=== PATIENT | female | born 1985 | race Caucasian/White ===

== ENCOUNTER 2018-04-24 13:36 | Emergency (ER) | payer OTHER ==
--- OUTSIDE RECORDS SUMMARY | 2018-04-24 13:38 | XMS REPORT | Clinical Summary ---
:1985 Author Organization [facility] Address [address] [place] [address] Care Team Providers Name Role Phone Sebastián Carter MD Primary Care Provider Allergies Active Allergy Reactions Severity Noted Date Comments Penicillins Rash Low 02/05/2018 Medications Medication Sig Dispensed Refills Start Date End Date Status 25/iron Take by mouth. 0 Active fum/folic/dha (-1 ORAL) ferrous sulfate 325 (65 Take 325 mg by 0 Active FE) MG tablet mouth daily with breakfast. melatonin 3 mg tablet Take by mouth. 0 Active Active Problems Not on file Encounters Date Type Specialty Care Team Description 02/12/2018 Telephone Gynecologic Oncology Dara An RN 02/11/2018 Abstract Gynecologic Oncology Josef Hernandez MD 02/05/2018 Lab Lab Josef Hernandez MD 02/05/2018 Office Visit Gynecologic Oncology Josef Hernandez HGSIL (high grade squamous intraepithelial lesion) on Pap smear of cervix (Primary Dx); MD Trista HPV in female; 16 weeks gestation of after 04/23/2017 Family History Medical History Relation Name Comments Prostate cancer Father Breast cancer Maternal Grandmother Relation Name Status Comments Father Alive Maternal Grandmother Social History Tobacco Use Types Packs/Day Years Used Date Smoker, Current Status Unknown Cigarettes 0.5 12 Smokeless Tobacco: Never Used Alcohol Use Drinks/Week oz/Week Comments No Currently Comments Yes Sex Assigned at Date Recorded Not on file Job Start Date Occupation Industry Not on file Not on file Not on file Travel History Travel Start Travel End No recent travel history available. Last Filed Vital Signs Vital Sign Reading Time Taken Blood Pressure 110/55 02/05/2018 2:18 PM CDT Pulse 82 02/05/2018 2:18 PM CDT Temperature - - Respiratory Rate - - Oxygen Saturation - - Inhaled Oxygen Concentration - - Weight 69.8 kg (153 lb 12.8 oz) 02/05/2018 2:18 PM CDT Height 157.5 cm (5' 2") 02/05/2018 2:18 PM CDT Body Mass Index 28.13 02/05/2018 2:18 PM CDT Plan of Treatment Health Maintenance Due Date Last Done Comments CERVICAL CANCER SCREENING 2005 INFLUENZA VACCINE 12/25/2017 HEPATITIS B VACCINES Aged Out No longer eligible based on patient's age to complete this topic IPV VACCINES Aged Out No longer eligible based on patient's age to complete this topic MENINGOCOCCAL VACCINE Aged Out No longer eligible based on patient's age to complete this topic Procedures Procedure Name Priority Date/Time Associated Diagnosis Comments SURGICAL PATHOLOGY Routine 02/05/2018 4:22 PM Results for this REQUEST CDT procedure are in the results section. BIOPSY CERVIX Routine 02/05/2018 2:31 PM CDT AR BIOPSY SOFT Routine 02/05/2018 Results for this TISSUE NECK/CHEST procedure are in the results section. after 04/23/2017 Results Surgical pathology request (02/05/2018 4:22 PM CDT) [facility] DEPARTMENT OF PATHOLOGY AND GENOMIC MEDICINE Surgical pathology report See link below for PDF [facility] DEPARTMENT OF Lab Report PATHOLOGY AND GENOMIC MEDICINE Result status This is Final Report [facility] DEPARTMENT OF for [id number] PATHOLOGY AND GENOMIC MEDICINE Performing Organization Address City/State/Zipcode Phone Number [facility] DEPARTMENT OF PATHOLOGY [address] [place] [address] AND GENOMIC MEDICINE Soft tissue biopsy (02/05/2018) Narrative Performed At [facility]: [id number] AGE:32 Y SEX: FDOB: 1985 DOCTOR: JOSEF HERNANDEZ DATE OF SERVICE: 02/05/2018 [facility] Pathology Consultation Report FINAL REPORT CASE: [id number] ANATOMIC PATHOLOGY DIAGNOSIS: A. Cervix, 1:00, biopsy: Benign endocervical tissue with chronic inflammation and focal squamous metaplasia B. Cervix, 6:00, biopsy: Transformation zone mucosa with focal squamous metaplasia and reactive changes APEO 02/07/2018 PATHOLOGIST: Amara Kilgore M.D. I have reviewed this material and confirm the report. Released by electronic signature on: 02/07/2018 13:52 MATERIAL: A. Cervical biopsy at 1 o'clock B. Cervical biopsy at 6 o'clock HISTORY: 32 year-old female. HSIL, HPV in female, 16 week gestation at . GROSS: A. Received in formalin labeled "cervical biopsy at 1 o'clock", is a 0.6 x 0.4 x 0.3 cm aggregate of davidson-pink to red soft tissue with admixed mucous and clotted blood. The specimen is filtered and submitted in toto in cassette A. B. Received in formalin labeled "cervical biopsy at 6 o'clock" , is a 0.4 x 0.4 x 0.3 cm davidson-pink to red soft tissue which is submitted in toto in cassette B. Gross Dictator ID Gross Deputy Head ID [id number] 02/07/2018 1:52 PM MICROSCOPIC: A. Sections consist of benign endocervical tissue with scattered chronic inflammation with focal squamous metaplasia. P16 immunohistochemical stain is negative in the area of interest. B. Sections consist of transformation zone mucosa with focal squamous metaplasia. No definitive dysplasia is seen. P16 immunohistochemical stain is negative in the area of interest. This immunohistochemical test was developed and its preference characteristics determined by [facility], Immunohistochemistry section. It may not have been cleared or approved by the U.S. Food and Drug Administration. The FDA has determined that such clearance or approval is not necessary. This test is used for clinical purposes. It should not be regarded as investigational or for research. This laboratory is certified under the Clinical Laboratory Improvement Amendments of 1988 (CLIA) as qualified to perform high complexity clinical laboratory testing. Microscopic Dictator ID Microscopic Deputy Head ID 02/07/2018 1:52 PM [facility] [address] [place] [address] after 04/23/2017 Insurance Payer Benefit Plan / Group Subscriber ID Type Phone Address [employer] xxxxxxxxx HMO (Home) [address] [place] [phone] Advance Directives Patient has advance care planning documents on file. For more information, please contact:[place] [address] [place] [address]
[2018-04-24 14:23] LABS: Absolute Lymphocytes (CBC) 1.7 K/uL (0.7-4.9); Absolute Monocytes 0.5 K/uL (0.1-1.3); Basophils % 0.3 % (0-1.3); Eosinophils % 0.4 % (0-4.4); Hematocrit 32.4 % (36.0-45.0); Lymphocytes % 12.5 % (15.3-44.8); MCH 33.4 pg (27.0-35.0); MCV 95.5 fL (80-100); MPV 9.4 fL (7.6-11.3); Monocytes % 3.8 % (3.3-12.3); RBC Red Blood Cell Count 3.39 M/uL (3.86-4.86)
[2018-04-24 14:42] LABS: ALT/SGPT 19 U/L (12-78); AST/SGOT 14 U/L (15-37); Albumin 2.5 g/dL (3.4-5.0); Alkaline Phosphatase 81 U/L (45-117); BUN Blood Urea Nitrogen 7 mg/dL (7-18); Bicarbonate 25 mmol/L (21-32); Bilirubin Direct 0.1 mg/dL (0-0.2); Bilirubin Total 0.3 mg/dL (0.2-1.0); Glucose Level 108 mg/dL (74-106); Lipase 73 U/L (73-393); Potassium 3.4 mmol/L (3.5-5.1); Protein, Total 5.9 g/dL (6.4-8.2); Sodium Level 140 mmol/L (136-145)
[2018-04-24] MEDS ORDERED: ONDANSETRON 4 MG/2 ML VIAL ONE (15:16)
[2018-04-24] MEDS ORDERED: FAMOTIDINE 20 MG/2 ML VIAL IV ONE (15:16)
--- NOTE | 2018-04-24 15:48 | RAD REPORT ---
EXAM DESCRIPTION: US - Abdomen Exam Limited - 04/24/2018 3:27 pm CLINICAL HISTORY: Abdominal pain. COMPARISON: None. FINDINGS: Two gallstones are seen. Gallbladder wall measures 3.5 millimeters. The biliary tree is normal caliber IMPRESSION: Cholelithiasis. Mildly thickened gallbladder wall may indicate cholecystitis.
[2018-04-24 15:55] LABS: Urine Blood TRACE (NEG); Urine Glucose NEGATIVE (NEG); Urine Protein NEGATIVE (NEG)
[2018-04-24] MEDS ORDERED: POTASSIUM 25 MEQ EFFERV TAB ONE (16:14)
[2018-04-24 16:17] LABS: Urine Bacteria <20 /HPF (<20); Urine Culture Reflex Order NOT NEEDED; Urine RBC <5 /HPF (NONE SEEN)
--- NOTE | 2018-04-24 16:22 | ER ---
Nurse's Notes [facility] Name: Bridget Haas Age: 32 yrs Sex: Female : 1985 Arrival Date: 04/24/2018 Time: 13:39 Bed 17 Private MD: Sebastián Carter E Diagnosis: Cholelithiasis; related conditions, unspecified, unspecified trimester Presentation: 04/24 13:49 Presenting complaint: Patient states: Epigastric pain that radiates around to back with aj nausea. Patient is 33 weeks , cleared by L\T\D LIVESTOCK LABORER. Transition of care: patient was not received from another setting of care. Onset of symptoms was April 24, 2018. Risk Assessment: Do you want to hurt yourself or someone else? Patient reports no desire to harm self or others. Initial Sepsis Screen: Does the patient meet any 2 criteria? No. Patient's initial sepsis screen is negative. Does the patient have a suspected source of infection? No. Patient's initial sepsis screen is negative. Care prior to arrival: None. 13:49 Method Of Arrival: Ambulatory aj 13:49 Acuity: RONAK 3 aj Triage Assessment: 13:51 General: Appears in no apparent distress. comfortable, Behavior is calm, cooperative, aj appropriate for age. Pain: Complains of pain in epigastric area. Neuro: Level of Consciousness is awake, alert, obeys commands, Oriented to person, place, time, situation, Appropriate for age. Respiratory: Airway is patent Trachea midline Respiratory effort is even, unlabored, Respiratory pattern is regular, symmetrical. GI: Reports epigastric pain, nausea. Derm: Skin is intact, is healthy with good turgor, Skin is pink, warm \T\ dry. normal. Musculoskeletal: Circulation, motion, and sensation intact. RAC SPECIALIST: 13:51 LMP 09/02/2017 aj Historical: - Allergies: 13:51 PENICILLINS; aj - Home Meds: 13:51 Zoloft Oral [Active]; aj - PMHx: 13:51 ADD/ADHD; Anxiety; Depression; headaches/migraines; Kidney stones; aj - PSHx: 13:51 Tonsillectomy; D \T\ C; aj - Immunization history:: Adult Immunizations up to date. - Social history:: Smoking status: Patient uses tobacco products, smokes one pack cigarettes per day. - Ebola Screening: : Patient negative for fever greater than or equal to 101.5 degrees Fahrenheit, and additional compatible Ebola Virus Disease symptoms Patient denies exposure to infectious person Patient denies travel to an Ebola-affected area in the 21 days before illness onset No symptoms or risks identified at this time. Screenin:52 Abuse screen: Denies threats or abuse. Denies injuries from another. Nutritional sv screening: No deficits noted. Tuberculosis screening: No symptoms or risk factors identified. Fall Risk None identified. Assessment: 14:10 General: Appears in no apparent distress. uncomfortable, Behavior is calm, cooperative, sv appropriate for age. Pain: Complains of pain in epigastric area Pain currently is 5 out of 10 on a pain scale. Quality of pain is described as burning. Neuro: Level of Consciousness is awake, alert, obeys commands, Oriented to person, place, time, situation, Moves all extremities. Full function Gait is steady. Respiratory: Respiratory effort is even, unlabored, Respiratory pattern is regular, symmetrical. GI: Abdomen is round Pt is . Reports epigastric pain. Derm: Skin is pink, warm \T\ dry. 15:50 Reassessment: Patient appears in no apparent distress at this time. No changes from sv previously documented assessment. Patient and/or family updated on plan of care and expected duration. Pain level reassessed. Patient is alert, oriented x 3, equal unlabored respirations, skin warm/dry/pink. Vital Signs: 13:51 BP 111 / 69; Pulse 90; Resp 20; Temp 98.0; Pulse Ox 99% on R/A; Weight 73.48 kg; Height aj 5 ft. 1 in. (154.94 cm); 15:51 BP 105 / 69; Pulse 64; Resp 18; Temp 98.5; Pulse Ox 98% on R/A; gm 13:51 Body Mass Index 30.61 (73.48 kg, 154.94 cm) aj Vitals: 15:18 Heart Tones 132. sv ED Course: 13:39 Patient arrived in ED. mr 13:40 Sebastián Carter MD is Private Physician. mr 13:50 Triage completed. aj 13:51 Arm band placed on left wrist. Patient placed in an exam room. aj 14:02 Glo Bai RN is Primary Nurse. sv 14:10 Patient has correct armband on for positive identification. Bed in low position. Call sv light in reach. Adult w/ patient. Door closed. Head of bed elevated. 14:10 Initial lab(s) drawn, by me, sent to lab. Inserted saline lock: 20 gauge in right sv antecubital area, using aseptic technique. Blood collected. Flushed right antecubital with 5 ml normal saline. 14:13 Michael Collins PA is PHCP. cp 14:13 Clarence Moody MD is Attending Physician. cp 15:18 Patient taken to ultrasound. via wheelchair. sv 15:28 US Abdomen Limited In Process Unspecified. EDMS 15:29 Ultrasound completed. Patient tolerated well. hr 16:27 IV discontinued, intact, bleeding controlled, No redness/swelling at site. Pressure gm dressing applied. 16:37 No provider procedures requiring assistance completed. IV discontinued, intact, sv bleeding controlled, No redness/swelling at site. Pressure dressing applied. Administered Medications: 15:15 Drug: Zofran 4 mg Route: IVP; Site: right antecubital; sv 16:38 Follow up: Response: No adverse reaction sv 15:17 Drug: Pepcid 20 mg Route: IVP; Site: right antecubital; sv 16:39 Follow up: Response: No adverse reaction sv 16:34 Drug: Potassium Effervescent Tablet 25 mEq Route: PO; sv 16:38 Follow up: Response: No adverse reaction sv Outcome: 16:18 Discharge ordered by MD. cp 16:37 Discharged to home ambulatory, with family. sv 16:37 Condition: stable 16:37 Discharge instructions given to patient, Instructed on discharge instructions, follow up and referral plans. medication usage, Demonstrated understanding of instructions, follow-up care, medications, Prescriptions given X 2. 16:39 Patient left the ED. sv Signatures: Dispatcher [employer] EDMS Glo Bai RN RN sv Myers, Amanda, RN RN aj Rivera, Sarah mr Marita Lazo hr Michael Collins PA PA cp Moya, Gabriella gm
--- NOTE | 2018-04-24 16:22 | EDPHYS ---
Physician Documentation [facility] Name: Bridget Haas Age: 32 yrs Sex: Female : 1985 Arrival Date: 04/24/2018 Time: 13:39 Bed 17 Private MD: Sebastián Carter E ED Physician Clarence Moody HPI: 04/24 14:35 This 32 yrs old Female presents to ER via Ambulatory with complaints of Upper cp abd pain, Back Pain. 14:35 The symptoms radiate to right back. cp 14:35 The patient presents with abdominal pain in the epigastric area, in the right upper cp quadrant. 14:35 Onset: The symptoms/episode began/occurred today. Associated signs and symptoms: cp Pertinent positives: nausea, Pertinent negatives: chest pain, constipation, diarrhea, dysuria, vaginal discharge, active vomiting, fever. The symptoms are described as constant. Severity of pain: in the emergency department the pain is unchanged despite home interventions. SUPERVISOR RECORD PRESS: 13:51 LMP 09/02/2017 aj Historical: - Allergies: 13:51 PENICILLINS; aj - Home Meds: 13:51 Zoloft Oral [Active]; aj - PMHx: 13:51 ADD/ADHD; Anxiety; Depression; headaches/migraines; Kidney stones; aj - PSHx: 13:51 Tonsillectomy; D \T\ C; aj - Immunization history:: Adult Immunizations up to date. - Social history:: Smoking status: Patient uses tobacco products, smokes one pack cigarettes per day. - Ebola Screening: : Patient negative for fever greater than or equal to 101.5 degrees Fahrenheit, and additional compatible Ebola Virus Disease symptoms Patient denies exposure to infectious person Patient denies travel to an Ebola-affected area in the 21 days before illness onset No symptoms or risks identified at this time. ROS: 14:40 Constitutional: Negative for body aches, chills, fever, poor PO intake. cp 14:40 Eyes: Negative for injury, pain, redness, and discharge. cp 14:40 ENT: Negative for drainage from ear(s), ear pain, sore throat, difficulty swallowing, difficulty handling secretions. 14:40 Cardiovascular: Negative for chest pain, edema, palpitations. 14:40 Respiratory: Negative for cough, shortness of breath, wheezing. 14:40 Abdomen/GI: Positive for abdominal pain, nausea, Negative for vomiting, diarrhea, constipation, anorexia, black/tarry stool, rectal bleeding. 14:40 Back: Positive for radiated pain, Negative for injury or acute deformity. 14:40 : Negative for urinary symptoms. 14:40 Skin: Negative for cellulitis, rash. 14:40 Neuro: Negative for altered mental status, headache, weakness. 14:40 All other systems are negative. Exam: 14:48 Constitutional: The patient appears in no acute distress, alert, awake, non-toxic, well cp developed, well nourished. 14:48 Head/Face: Normocephalic, atraumatic. cp 14:48 Eyes: Periorbital structures: appear normal, Conjunctiva: normal, no exudate, no injection, Sclera: no appreciated abnormality, Lids and lashes: appear normal, bilaterally. 14:48 ENT: External ear(s): are unremarkable, Nose: is normal, Mouth: is normal, Posterior pharynx: is normal, airway is patent, no erythema, no exudate. 14:48 Chest/axilla: Normal chest wall appearance and motion. Nontender with no deformity. cp No lesions are appreciated. 14:48 Cardiovascular: Regular rate and rhythm with a normal S1 and S2. No gallops, murmurs, or rubs. Normal PMI, no JVD. No pulse deficits. Respiratory: Lungs have equal breath sounds bilaterally, clear to auscultation and percussion. No rales, rhonchi or wheezes noted. No increased work of breathing, no retractions or nasal flaring. 14:48 Abdomen/GI: Inspection: gravid appearance, is noted, Bowel sounds: active, all quadrants, Palpation: soft, in all quadrants, moderate abdominal tenderness, in the epigastric area and right upper quadrant, rebound tenderness, is not appreciated, involuntary guarding, is not appreciated. 14:48 Back: pain, that is mild, of the right mid back, ROM is normal. 14:48 Skin: cellulitis, is not appreciated, no rash present. 14:48 Neuro: Orientation: to person, place \T\ time. Mentation: is normal, Cerebellar function: cp is grossly normal, Motor: is normal, Sensation: is normal. Vital Signs: 13:51 BP 111 / 69; Pulse 90; Resp 20; Temp 98.0; Pulse Ox 99% on R/A; Weight 73.48 kg; Height aj 5 ft. 1 in. (154.94 cm); 15:51 BP 105 / 69; Pulse 64; Resp 18; Temp 98.5; Pulse Ox 98% on R/A; gm 13:51 Body Mass Index 30.61 (73.48 kg, 154.94 cm) aj MDM: 14:14 Patient medically screened. cp 15:00 Differential diagnosis: bowel obstruction, cholecystitis, Cholelithiasis, gastritis, cp pancreatitis, Ureterolithiasis, urinary tract infection. 16:16 Data reviewed: vital signs, nurses notes, lab test result(s), radiologic studies, cp ultrasound, and as a result, I will discharge patient. Counseling: I had a detailed discussion with the patient and/or guardian regarding: the historical points, exam findings, and any diagnostic results supporting the discharge/admit diagnosis, lab results, radiology results, to return to the emergency department if symptoms worsen or persist or if there are any questions or concerns that arise at home. Response to treatment: the patient's symptoms have markedly improved after treatment. 04/24 14:05 Order name: Basic Metabolic Panel; Complete Time: 14:46 sv 04/24 15:53 Interpretation: Normal except: K 3.4; GLUC 108; CRE 0.50. 04/24 14:05 Order name: CBC with Diff; Complete Time: 14:46 sv 04/24 15:54 Interpretation: Normal except: WBC 13.3; RBC 3.39; HGB 11.3; HCT 32.4; MCV 95.5; MCH cp 33.4; PLT 148; DAVID% 83.0; LYM% 12.5; NEUT A 11.0. 04/24 14:05 Order name: Creatinine for Radiology; Complete Time: 14:46 sv 04/24 15:56 Interpretation: Reviewed. 04/24 14:05 Order name: Hepatic Function; Complete Time: 14:46 sv 04/24 15:54 Interpretation: Normal except: AST 14; TP 5.9; ALB 2.5; A/G 0.7. 04/24 14:05 Order name: Lipase; Complete Time: 14:46 sv 04/24 15:06 Order name: Urine Microscopic Only 04/24 14:05 Order name: IV Saline Lock; Complete Time: 14:47 sv 04/24 14:05 Order name: Labs collected and sent; Complete Time: 14:47 sv 04/24 14:56 Order name: US Abdomen Limited; Complete Time: 15:53 cp 04/24 16:15 Interpretation: Report reviewed. 04/24 15:15 Order name: Urine Dipstick--Ancillary (enter results); Complete Time: 16:08 eb 04/24 15:15 Order name: Urine --Ancillary (enter results); Complete Time: 16:08 eb 04/24 14:14 Order name: Urine Dipstick-Ancillary (obtain specimen); Complete Time: 15:06 cp 04/24 14:14 Order name: Urine Test (obtain specimen); Complete Time: 15:06 cp 04/24 14:56 Order name: FHT's; Complete Time: 15:17 cp Administered Medications: 15:15 Drug: Zofran 4 mg Route: IVP; Site: right antecubital; sv 16:38 Follow up: Response: No adverse reaction sv 15:17 Drug: Pepcid 20 mg Route: IVP; Site: right antecubital; sv 16:39 Follow up: Response: No adverse reaction sv 16:34 Drug: Potassium Effervescent Tablet 25 mEq Route: PO; sv 16:38 Follow up: Response: No adverse reaction sv Disposition: 18:57 Co-signature as Attending Physician, Clarence Moody MD I agree with the assessment and kdr plan of care. Disposition: 04/24/18 16:18 Discharged to Home. Impression: Cholelithiasis, related conditions, unspecified, unspecified trimester. - Condition is Stable. - Discharge Instructions: Abdominal Pain During , Biliary Colic, Adult, Cholelithiasis. - Prescriptions for promethazine 25 mg Oral Tablet - take 1 tablet by ORAL route every 6 hours As needed; 20 tablet. Pepcid 20 mg Oral Tablet - take 1 tablet by ORAL route every 12 hours for 10 days; 20 tablet. - Medication Reconciliation Form, Thank You Letter, Antibiotic Education, Prescription Opioid Use form. - Follow up: Private Physician; When: primary SUPERVISOR RECORD PRESS next 1-2 days; Reason: Recheck today's complaints. - Problem is new. - Symptoms have improved. Signatures: Dispatcher [facility] Glo Valdez RN RN sv Myers, Amanda, RN RN aj Rittger, Kevin, MD MD kdr Page, Michael, PA PA cp Corrections: (The following items were deleted from the chart) 16:39 16:18 04/24/2018 16:18 Discharged to Home. Impression: Cholelithiasis; sv related conditions, unspecified, unspecified trimester. Condition is Stable. Forms are Medication Reconciliation Form, Thank You Letter, Antibiotic Education, Prescription Opioid Use. Follow up: Private Physician; When: primary SUPERVISOR RECORD PRESS next 1-2 days; Reason: Recheck today's complaints. Problem is new. Symptoms have improved. cp 04/25 16:23 04/24 14:35 The patient presents with abdominal pain in the right upper quadrant, cp cp
[2018-04-24 17:15] VITALS: BP 105/69; TEMP 98.5; O2SAT 98
== END 2018-04-24 16:39 | disposition home or self-care (01) ==
LOC: ER 13:36
DX: O99.611 Diseases of the digestive system complicating pregnancy, first trimester (principal); O99.331 Smoking (tobacco) complicating pregnancy, first trimester; O99.341 Other mental disorders complicating pregnancy, first trimester; Z88.0 Allergy status to penicillin; F17.210 Nicotine dependence, cigarettes, uncomplicated
CPT/HCPCS: 36415; 76705; 80048; 80076; 81003; 81015; 81025; 83690; 85025; 96374; 96375; 99284; J2405

== ENCOUNTER 2018-05-01 03:21 | Emergency (ER) | payer OTHER ==
--- OUTSIDE RECORDS SUMMARY | 2018-05-01 03:23 | XMS REPORT | Clinical Summary ---
:1985 Author Organization [facility] Address [address] [place] [address] Care Team Providers Name Role Phone Sebastián [...] in female; 16 weeks gestation of after 04/30/2017 Family History Medical History Relation Name Comments [...] BIOPSY CERVIX Routine 02/05/2018 2:31 PM CDT LA BIOPSY SOFT Routine 02/05/2018 Results for this TISSUE NECK/CHEST procedure are in the results section. after 04/30/2017 Results Surgical pathology request (02/05/2018 4:22 PM CDT) [facility] DEPARTMENT OF PATHOLOGY AND GENOMIC MEDICINE Surgical pathology report See link below for PDF [facility] DEPARTMENT OF Lab Report PATHOLOGY AND GENOMIC MEDICINE Result status This is Final Report [facility] DEPARTMENT OF for [id number] PATHOLOGY AND GENOMIC MEDICINE Performing Organization Address City/State/Zipcode Phone Number [facility] DEPARTMENT OF PATHOLOGY [address] [place] [address] AND GENOMIC MEDICINE Soft tissue biopsy (02/05/2018) Narrative Performed At [facility]: [id number] AGE:32 Y SEX: FDOB: 1985 DOCTOR: JOSEF HERNANDEZ DATE OF SERVICE: 02/05/2018 [facility] Pathology Consultation Report FINAL REPORT CASE: SUSTAINABILITY [id number] ANATOMIC PATHOLOGY DIAGNOSIS: A. Cervix, 1:00, biopsy: [...] in cassette B. Gross Dictator ID Gross Lamp Stack Developer ID ekj 02/07/2018 1:52 PM MICROSCOPIC: A. [...] developed and its preference characteristics determined by [facility]ology [facility], Immunohistochemistry section. It may not [...] clinical laboratory testing. Microscopic Dictator ID Microscopic Lamp Stack Developer ID 02/07/2018 1:[address] [facility] [id number] [place] [address] after 04/30/2017 Insurance Payer Benefit Plan / Group Subscriber ID Type Phone Address Style [employer]/[facility] xxxxxxxxx HMO (Home) [address] [place] [phone] Advance Directives Patient has advance care planning documents on file. For more information, please contact:[place] [address] [place] [address]
[2018-05-01] MEDS ORDERED: FENTANYL CITR 100 MCG/2 ML ONE (04:13)
[2018-05-01] MEDS ORDERED: NA CHLORIDE 0.9% 1,000 ML ONE ×2 (04:13→06:17)
[2018-05-01] MEDS ORDERED: ONDANSETRON 4 MG/2 ML VIAL ONE (04:13)
[2018-05-01 04:21] LABS: Absolute Lymphocytes (CBC) 1.4 K/uL (0.7-4.9); Absolute Monocytes 0.5 K/uL (0.1-1.3); Basophils % 0.3 % (0-1.3); Eosinophils % 0.2 % (0-4.4); Hematocrit 36.6 % (36.0-45.0); Lymphocytes % 12.6 % (15.3-44.8); MCH 33.3 pg (27.0-35.0); MCV 96.3 fL (80-100); MPV 10.2 fL (7.6-11.3); Monocytes % 4.9 % (3.3-12.3)
[2018-05-01 04:49] LABS: ALT/SGPT 41 U/L (12-78); AST/SGOT 22 U/L (15-37); Albumin 2.9 g/dL (3.4-5.0); Alkaline Phosphatase 103 U/L (45-117); BUN Blood Urea Nitrogen 8 mg/dL (7-18); Bicarbonate 24 mmol/L (21-32); Bilirubin Direct 0.2 mg/dL (0-0.2); Bilirubin Total 0.4 mg/dL (0.2-1.0); Glucose Level 102 mg/dL (74-106); Lipase 74 U/L (73-393); Potassium 3.9 mmol/L (3.5-5.1); Protein, Total 6.8 g/dL (6.4-8.2); Sodium Level 138 mmol/L (136-145)
[2018-05-01 06:07] LABS: Urine Amorphous Sediment 2+ /HPF (NONE SEEN); Urine Bacteria <20 /HPF (<20); Urine Culture Reflex Order NOT NEEDED; Urine RBC <5 /HPF (NONE SEEN)
[2018-05-01] MEDS ORDERED: MORPHINE 4 MG/ML SYR ONE ×2 (06:16→10:15)
[2018-05-01 06:17] LABS: Urine Blood TRACE (NEG); Urine Glucose NEGATIVE (NEG); Urine Protein NEGATIVE (NEG); Urine Specific Gravity 1.025 (1.005-1.030); Urine pH 7.5 (5.0-7.0)
--- NOTE | 2018-05-01 06:47 | ER ---
Nurse's Notes [facility] Name: Bridget Haas Age: 33 yrs Sex: Female : 1985 Arrival Date: 05/01/2018 Time: 03:26 Bed 15 Private MD: Sebastián Carter E Diagnosis: Acute cholecystitis Presentation: 05/01 03:42 Presenting complaint: Patient states: she is 34 weeks and was diagnosed with aa1 gallstones last week. Reports she was told they wanted to wait to do surgery bc of the but the pain is getting worse and now she has been vomiting for the past 3 hours. Transition of care: patient was not received from another setting of care. Onset of symptoms was April 24, 2018. Risk Assessment: Do you want to hurt yourself or someone else? Patient reports no desire to harm self or others. Initial Sepsis Screen: Does the patient meet any 2 criteria? No. Patient's initial sepsis screen is negative. Does the patient have a suspected source of infection? No. Patient's initial sepsis screen is negative. Care prior to arrival: None. 03:42 Method Of Arrival: Ambulatory aa1 03:42 Acuity: RONAK 3 aa1 Historical: - Allergies: 10:57 PENICILLINS; ch - Home Meds: 03:45 Phenergan Oral [Active]; Famotidine Oral [Active]; Ferralet 90 Dual-Iron Delivery oral aa1 oral [Active]; - PMHx: 03:45 ADD/ADHD; Anxiety; Depression; headaches/migraines; Kidney stones; aa1 - PSHx: 03:45 Tonsillectomy; D \T\ C; aa1 - Immunization history:: Flu vaccine is up to date. - Social history:: Smoking status: Patient uses tobacco products, smokes one-half pack cigarettes per day. - Ebola Screening: : Patient denies exposure to infectious person Patient denies travel to an Ebola-affected area in the 21 days before illness onset. Screenin:00 Abuse screen: Denies threats or abuse. Nutritional screening: No deficits noted. jb4 Tuberculosis screening: No symptoms or risk factors identified. Fall Risk None identified. Assessment: 04:00 General: Appears in no apparent distress. uncomfortable, Behavior is calm, cooperative, jb4 appropriate for age. Pain: Complains of pain in back and abdomen Pain currently is 6 out of 10 on a pain scale. Neuro: Level of Consciousness is awake, alert, obeys commands, Oriented to person, place, time, situation. Cardiovascular: Patient's skin is warm and dry. Respiratory: Airway is patent Respiratory effort is even, unlabored, Respiratory pattern is regular, symmetrical. GI: Abdomen is round non-distended, Reports upper abdominal pain, nausea, vomiting. : No signs and/or symptoms were reported regarding the genitourinary system. EENT: No signs and/or symptoms were reported regarding the EENT system. Derm: Skin is intact, Skin is pink, warm \T\ dry. Musculoskeletal: Circulation, motion, and sensation intact. 04:21 General: Pt transported to [facility] to be cleared by OB, will return after she has been jb4 cleared.. 05:33 Reassessment: Patient appears in no apparent distress at this time. Patient and/or jb4 family updated on plan of care and expected duration. Pain level reassessed. Patient is alert, oriented x 3, equal unlabored respirations, skin warm/dry/pink. Pt is back from [facility] and has been cleared. Patient states feeling better. 07:00 Reassessment: Patient appears in no apparent distress at this time. Patient and/or jb4 family updated on plan of care and expected duration. Pain level reassessed. Patient is alert, oriented x 3, equal unlabored respirations, skin warm/dry/pink. 07:35 Reassessment: Patient appears in no apparent distress at this time. Patient and/or ch family updated on plan of care and expected duration. Pain level reassessed. Patient is alert, oriented x 3, equal unlabored respirations, skin warm/dry/pink. report called to [facility], given to Arin Mccann. 09:00 Reassessment: Patient appears in no apparent distress at this time. dr Washington calls and speaks with Dr. Trevizo, transfer placed on hold, EMS sent back to the station. new orders in the computer. 09:50 Reassessment: Patient appears in no apparent distress at this time. No changes from previously documented assessment. Patient and/or family updated on plan of care and expected duration. Pain level reassessed. Patient is alert, oriented x 3, equal unlabored respirations, skin warm/dry/pink. erp speaks with pt again, pt has increased gall bladder wall thickening. transfer resumed, [facility] em[facility] contacted. Vital Signs: 03:45 BP 114 / 71; Pulse 85; Resp 18; Temp 98.3; Pulse Ox 100% on R/A; Weight 73.48 kg; aa1 Height 5 ft. 1 in. (154.94 cm); Pain 10; 05:33 BP 117 / 74; Pulse 72; Resp 16; Pulse Ox 100% on R/A; jb4 07:00 BP 138 / 85; Pulse 81; Resp 16; Pulse Ox 98% on R/A; jb4 07:35 BP 101 / 52; Pulse 64; Resp 18; Temp 98.9; Pulse Ox 99% on R/A; Pain 1/10; ch 09:01 BP 116 / 68; Pulse 71; Resp 16; Temp 97.9; Pulse Ox 99% on R/A; Pain 2/10; ch 03:45 Body Mass Index 30.61 (73.48 kg, 154.94 cm) aa1 ED Course: 03:26 Patient arrived in ED. es 03:27 Sebastián Carter MD is Private Physician. es 03:42 Willie Mao MD is Attending Physician. gs 03:43 Triage completed. aa1 03:45 Arm band placed on right wrist. aa1 04:00 Patient has correct armband on for positive identification. Bed in low position. Call jb4 light in reach. Side rails up X 1. Pulse ox on. NIBP on. 04:00 Initial lab(s) drawn, by me, sent to lab. Inserted saline lock: 20 gauge in right jb4 antecubital area, using aseptic technique. Blood collected. 04:02 Elmo Cuello, RN is Primary Nurse. jb4 05:33 Warm blanket given. Pillow given. jb4 07:08 transfer in process prior to my arrival/ administrative approval given by Mickie Arechiga RN regional coordinator/ pt is going to [facility] Triage 1/ report to be called to the transfer center at [phone]/ Dr. Tiana Bennett accepted the patient in transfer. 07:28 Primary Nurse role handed off by Elmo Cuello, [place] ch 07:28 Nery Hutchins, OLIMPIA is Primary Nurse. ch 07:35 No provider procedures requiring assistance completed. Patient admitted, IV remains in place. 09:21 Abdomen Limited In Process Unspecified. EDMS Administered Medications: 04:12 Drug: NS 0.9% 1000 ml Route: IV; Rate: 1 bolus; Site: right antecubital; jb4 05:15 Follow up: Response: No adverse reaction; IV Status: Completed infusion jb4 04:13 Drug: Zofran 4 mg Route: IVP; Site: right antecubital; jb4 05:36 Follow up: Response: No adverse reaction; Nausea is decreased jb4 04:17 Drug: fentaNYL (PF) 50 mcg Route: IVP; Site: right antecubital; jb4 05:36 Follow up: Response: No adverse reaction; Pain is decreased jb4 06:20 Drug: morphine 4 mg Route: IVP; Site: right antecubital; jb4 07:00 Follow up: Response: No adverse reaction; Pain is decreased jb4 06:20 Drug: NS 0.9% 1000 ml Route: IV; Rate: 125 ml/hr; Site: right antecubital; jb4 08:04 Follow up: IV Status: Infusion continued upon admission; IV Intake: 300ml ch 06:27 Not Given (No Cefoxitin available for use in the hospital.): cefOXitin 1 grams IVPB jb4 once over 30 mins; (mix in 50 mL NS) 07:10 Drug: Cefepime 1 grams Route: IVPB; Rate: 200 ml/hr; Infused Over: 30 mins; Site: right ch antecubital; 08:04 Follow up: IV Status: Completed infusion; IV Intake: 100ml ch 10:05 Drug: morphine 4 mg Route: IVP; Site: right antecubital; 10:53 Follow up: Response: No adverse reaction; Marked relief of symptoms ch Intake: 08:04 IV: 100ml; Total: 100ml. ch 08:04 IV: 300ml; Total: 400ml. Outcome: 06:46 ER care complete, transfer ordered by . 10:40 Transferred by ground EMS to other acute care facility, Transfer form completed. X-rays sent w/ patient. 10:40 Condition: stable 10:40 Instructed on the need for transfer. 10:53 Patient left the ED. Signatures: Dispatcher [employer] EDMS Nery Hutchins RN RN ch Kern, Alissa, RN RN aa1 Margot Osborne James, RN RN jb4 Willie Mao MD MD gs Botello, Elizabeth eb Corrections: (The following items were deleted from the chart) 10:57 03:45 Allergies: PENICILLINS; aa1 ch
--- NOTE | 2018-05-01 06:47 | EDPHYS ---
Physician Documentation [facility] Name: Bridget Haas Age: 33 yrs Sex: Female : 1985 Arrival Date: 05/01/2018 Time: 03:26 Bed 15 Private MD: Sebastián Carter E ED Physician Willie Mao HPI: 05/01 03:52 This 33 yrs old Female presents to ER via Ambulatory with complaints of gs Gaullstones, nausea,vomiting. 03:52 The patient presents with abdominal pain in the right upper quadrant. Onset: The gs symptoms/episode began/occurred acutely. The symptoms radiate to Associated signs and symptoms: Pertinent positives: nausea, vomiting. The symptoms are described as crampy, sharp. Modifying factors: The symptoms are alleviated by nothing, the symptoms are aggravated by nothing. Severity of pain: At its worst the pain was moderate in the emergency department the pain is unchanged. The patient has experienced similar episodes in the past, a few times. The patient has been recently seen at the [facility] Emergency Department, for similar complaints. Historical: - Allergies: 10:57 PENICILLINS; ch - Home Meds: 03:45 Phenergan Oral [Active]; Famotidine Oral [Active]; Ferralet 90 Dual-Iron Delivery oral aa1 oral [Active]; - PMHx: 03:45 ADD/ADHD; Anxiety; Depression; headaches/migraines; Kidney stones; aa1 - PSHx: 03:45 Tonsillectomy; D \T\ C; aa1 - Immunization history:: Flu vaccine is up to date. - Social history:: Smoking status: Patient uses tobacco products, smokes one-half pack cigarettes per day. - Ebola Screening: : Patient denies exposure to infectious person Patient denies travel to an Ebola-affected area in the 21 days before illness onset. ROS: 03:52 All other systems are negative. gs Exam: 03:55 Head/Face: Normocephalic, atraumatic. Eyes: Pupils equal round and reactive to light, gs extra-ocular motions intact. Lids and lashes normal. Conjunctiva and sclera are non-icteric and not injected. Cornea within normal limits. Periorbital areas with no swelling, redness, or edema. ENT: Nares patent. No nasal discharge, no septal abnormalities noted. Tympanic membranes are normal and external auditory canals are clear. Oropharynx with no redness, swelling, or masses, exudates, or evidence of obstruction, uvula midline. Mucous membranes moist. Neck: Trachea midline, no thyromegaly or masses palpated, and no cervical lymphadenopathy. Supple, full range of motion without nuchal rigidity, or vertebral point tenderness. No Meningismus. Chest/axilla: Normal chest wall appearance and motion. Nontender with no deformity. No lesions are appreciated. Cardiovascular: Regular rate and rhythm with a normal S1 and S2. No gallops, murmurs, or rubs. Normal PMI, no JVD. No pulse deficits. Respiratory: Lungs have equal breath sounds bilaterally, clear to auscultation and percussion. No rales, rhonchi or wheezes noted. No increased work of breathing, no retractions or nasal flaring. Back: No spinal tenderness. No costovertebral tenderness. Full range of motion. Skin: Warm, dry with normal turgor. Normal color with no rashes, no lesions, and no evidence of cellulitis. MS/ Extremity: Pulses equal, no cyanosis. Neurovascular intact. Full, normal range of motion. Neuro: Awake and alert, GCS 15, oriented to person, place, time, and situation. Cranial nerves II-XII grossly intact. Motor strength 5/5 in all extremities. Sensory grossly intact. Cerebellar exam normal. Normal gait. 03:55 Constitutional: The patient appears alert, awake. 03:55 Abdomen/GI: Palpation: moderate abdominal tenderness, in the right upper quadrant, rebound tenderness, is not appreciated. Vital Signs: 03:45 BP 114 / 71; Pulse 85; Resp 18; Temp 98.3; Pulse Ox 100% on R/A; Weight 73.48 kg; aa1 Height 5 ft. 1 in. (154.94 cm); Pain 10/10; 05:33 BP 117 / 74; Pulse 72; Resp 16; Pulse Ox 100% on R/A; jb4 07:00 BP 138 / 85; Pulse 81; Resp 16; Pulse Ox 98% on R/A; jb4 07:35 BP 101 / 52; Pulse 64; Resp 18; Temp 98.9; Pulse Ox 99% on R/A; Pain 1/10; ch 09:01 BP 116 / 68; Pulse 71; Resp 16; Temp 97.9; Pulse Ox 99% on R/A; Pain 2/10; ch 03:45 Body Mass Index 30.61 (73.48 kg, 154.94 cm) aa1 MDM: 03:42 Patient medically screened. 03:55 Differential diagnosis: cholecystitis, Cholelithiasis, labor. Data reviewed: vital gs signs, nurses notes. 06:44 Response to treatment: the patient's symptoms have mildly improved after treatment. Physician consultation: Vladimir Dominguez MD after a discussion of the case, a recommendation for transfer for higher level of care is made. 09:17 ED course: Contacted by Dr. Franco, patient's personal OB, requested reeval of patient rn given she called him and told him was pain free, feels much better. No pain at this moment, but also s/p fentanyl and morphine. Spoke with patient, was very candid about situation, she appreciated our long conversation, decision made to obtain u/s to reeval if infected or not, and reassess, transfer held for now, will reassess and contact Dr. Franco once again. If patient's pain controlled, Dr. Franco would like patient discharged. . 09:52 ED course: Pt with increasing pain again, u/s obtained and shows more thickened wall rn with pericholecystic fluid, updated Dr. Franco and spoke again with patient, patient would like to be transferred given possibility of surgical intervention.. 05/01 03:57 Order name: Basic Metabolic Panel 05/01 03:57 Order name: CBC with Diff 05/01 03:57 Order name: Hepatic Function 05/01 03:57 Order name: Lipase 05/01 03:57 Order name: Urine Microscopic Only 05/01 04:50 Order name: Basic Metabolic Panel; Complete Time: 05:49 EDMS 05/01 04:50 Order name: Liver (Hepatic) Function; Complete Time: 05:49 EDMS 05/01 04:50 Order name: Lipase; Complete Time: 05:49 EDMS 05/01 04:58 Order name: CBC with Automated Diff; Complete Time: 05:49 EDMS 05/01 05:51 Order name: Urine Dipstick--Ancillary (enter results) ag4 05/01 06:08 Order name: Urine Microscopic Only; Complete Time: 06:33 EDMS 05/01 06:17 Order name: Urine Dipstick-Ancillary; Complete Time: 06:33 EDMS 05/01 08:53 Order name: US Abdomen Limited; Complete Time: 10:01 rn 05/01 03:57 Order name: IV Saline Lock; Complete Time: 04:02 gs 05/01 03:57 Order name: Labs collected and sent; Complete Time: 04:21 gs 05/01 03:57 Order name: Urine Dipstick-Ancillary (obtain specimen); Complete Time: 05:39 gs Administered Medications: 04:12 Drug: NS 0.9% 1000 ml Route: IV; Rate: 1 bolus; Site: right antecubital; jb4 05:15 Follow up: Response: No adverse reaction; IV Status: Completed infusion jb4 04:13 Drug: Zofran 4 mg Route: IVP; Site: right antecubital; jb4 05:36 Follow up: Response: No adverse reaction; Nausea is decreased jb4 04:17 Drug: fentaNYL (PF) 50 mcg Route: IVP; Site: right antecubital; jb4 05:36 Follow up: Response: No adverse reaction; Pain is decreased jb4 06:20 Drug: morphine 4 mg Route: IVP; Site: right antecubital; jb4 07:00 Follow up: Response: No adverse reaction; Pain is decreased jb4 06:20 Drug: NS 0.9% 1000 ml Route: IV; Rate: 125 ml/hr; Site: right antecubital; jb4 08:04 Follow up: IV Status: Infusion continued upon admission; IV Intake: 300ml ch 06:27 Not Given (No Cefoxitin available for use in the hospital.): cefOXitin 1 grams IVPB jb4 once over 30 mins; (mix in 50 mL NS) 07:10 Drug: Cefepime 1 grams Route: IVPB; Rate: 200 ml/hr; Infused Over: 30 mins; Site: right ch antecubital; 08:04 Follow up: IV Status: Completed infusion; IV Intake: 100ml ch 10:05 Drug: morphine 4 mg Route: IVP; Site: right antecubital; 10:53 Follow up: Response: No adverse reaction; Marked relief of symptoms ch Disposition: 05/01/18 06:46 Transfer ordered to Other Acute Care Facility. Diagnosis is Acute cholecystitis. - Reason for transfer: Higher level of care. - Accepting physician is tbd. - Condition is Stable. - Problem is new. - Symptoms have improved. Signatures: Dispatcher [employer] Nery Rios, RN RN ch Cassandra Gibson RN RN aa1 Spencer Trevizo MD MD rn Bryson, James, RN RN jb4 Willie Mao MD MD gs Corrections: (The following items were deleted from the chart) 10:53 06:46 05/01/2018 06:46 Transfer ordered to Other Acute Care Facility. Diagnosis is Acute cholecystitis. Reason for transfer: Higher level of care. Accepting physician is tbd. Condition is Stable. Problem is new. Symptoms have improved. 10:57 03:45 Allergies: PENICILLINS; aa1
[2018-05-01] MEDS ORDERED: CEFEPIME 1 GM/100 ML BAG IV ONE (07:16)
[2018-05-01] MEDS ORDERED: Ringers Lactate 0 ML IV ONE (07:53)
--- NOTE | 2018-05-01 09:57 | RAD REPORT ---
EXAM DESCRIPTION: US - Abdomen Exam Limited - 05/01/2018 9:21 am CLINICAL HISTORY: Abdominal pain, right upper quadrant pain COMPARISON: Ultrasound April 24, 2018 FINDINGS: Gallbladder size is normal. Again noted are the multiple small mobile gallstones. Sludge i s present in the gallbladder lumen and has increased since April 24. Gallbladder wall is thickened up to 4.5 mm. A small amount of pericholecystic fluid is present. No common duct stone or biliary tree dilatation identified. IMPRESSION: Multiple gallstones are present matching the April 24 study. Sludge is now present in creased in volume since April 24. Gallbladder wall thickening and minimal pericholecystic fluid present. Correlation is needed with ex am findings for acute cholecystitis.
[2018-05-01 11:04] VITALS: O2SAT 99
[2018-05-01 11:06] VITALS: BP 116/68; TEMP 97.9
== END 2018-05-01 10:53 ==
LOC: ER 03:21
DX: K81.0 Acute cholecystitis (principal); F17.210 Nicotine dependence, cigarettes, uncomplicated; F41.9 Anxiety disorder, unspecified; F32.9 Major depressive disorder, single episode, unspecified; Z88.0 Allergy status to penicillin
CPT/HCPCS: 36415; 76705; 80048; 80076; 81003; 81015; 83690; 85025; 96361; 96365; 96375; 99285; J0692; J2405; J3010; J7030

== ENCOUNTER 2018-06-02 03:55 | Inpatient (IN) | payer OTHER ==
[~2018-06-02 03:55] MED LIST: BUTORPHANOL 1 MG/ML INJ IV PRN; CARBOPROST TROME 250 MCG/ML IM PRN; MEPERIDINE HCL 25 MG/0.5 ML IV PRN; METHYLERGONOVINE 0.2MG/ML AMP IM PRN; PROMETHAZINE 25 MG/ML VIAL IM PRN; Ringers Lactate 1,000 ML IV PRN
--- OUTSIDE RECORDS SUMMARY | 2018-06-02 03:57 | XMS REPORT | Clinical Summary ---
:1985 Author Organization [facility] Address [address] [place] [address] Care Team Providers Name Role Phone Sebastián Carter Primary Care Provider Allergies Active Allergy Reactions Severity Noted Date Comments Penicillins Shortness Of Breath, Rash High 05/01/2018 Medications Medication Sig Dispensed Refills Start Date End Date Status famotidine (PEPCID) Take 20 mg by 0 Active 20 MG tablet mouth every 12 (twelve) hours. promethazine Take 25 mg by 0 Active (PHENERGAN) 25 MG mouth every 6 tablet (six) hours as needed for Nausea. iron/folic Take by mouth 0 Active acid/B12/C/docusate once. (FERRALET 90 ORAL) HYDROcodone-acetamino Take 1 tablet by 30 tablet 0 05/03/2018 05/13/2018 phen (NORCO 5-325) mouth every 4 5-325 mg per tablet (four) hours as needed for Pain for up to 10 days. Max Daily Amount: 6 tablets Active Problems Problem Noted Date Cholestasis during in third trimester 05/02/2018 05/01/2018 contractions 05/01/2018 Encounters Date Type Specialty Care Team Description 05/14/2018 Office Visit General Surgery Aroldo, S/P laparoscopic Hong Curtis cholecystectomy (Primary Dx) 05/02/2018 Anesthesia Event Andrew Salguero MD 05/02/2018 Surgery [place], LAPAROSCOPY,CHOLECYSTEC JOSE Bello MD 05/01/2018 - Hospital Encounter Obstetrics Tiana Bennett 34 weeks gestation of (Primary Dx); 05/03/2018 MD Macario contractions after 06/01/2017 Family History Medical History Relation Name Comments Cancer Father Alzheimer's disease Maternal Grandfather Heart disease Maternal Grandfather Cancer Maternal Grandmother Relation Name Status Comments Father Maternal Grandfather Maternal Grandmother Social History Tobacco Use Types Packs/Day Years Used Date Current Every Day Smoker 1.5 18 Smokeless Tobacco: Current User Tobacco Cessation: Ready to Quit: Yes; Counseling Given: Yes Alcohol Use Drinks/Week oz/Week Comments No Alcohol Habits Answer Date Recorded How often do you have a drink containing alcohol? Never 05/01/2018 How many drinks containing alcohol do you have on a typical Not asked day when you are drinking? How often do you have six or more drinks on one occasion? Not asked Currently Estimated Date of Delivery Comments Yes 06/09/2018 Based on Patient Reported Sex Assigned at Date Recorded Not on file Job Start Date Occupation Industry Not on file Not on file Not on file Travel History Travel Start Travel End No recent travel history available. Last Filed Vital Signs Vital Sign Reading Time Taken Blood Pressure 104/70 05/14/2018 3:43 PM [employer] Pulse 100 05/14/2018 3:43 PM [employer] Temperature 36.7 C (98.1 F) 05/14/2018 3:43 PM [employer] Respiratory Rate 18 05/03/2018 7:00 AM [employer] DIS[employer] Oxygen Saturation 95% 05/03/2018 4:49 AM [employer] Inhaled Oxygen Concentration - - Weight 71.2 kg (157 lb) 05/14/2018 3:43 PM [employer] Height 154.9 cm (5' 1") 05/14/2018 3:43 PM [employer] Body Mass Index 29.66 05/14/2018 3:43 PM [employer] DIS[employer]ER Plan of Treatment Date Type Specialty Care Team Description 06/09/2018 Hospital Encounter Obstetrics Tiana Bennett MD [address] [place] [address] [phone] Procedures Procedure Name Priority Date/Time Associated Diagnosis Comments CBC W/PLT COUNT & STAT 05/03/2018 4:24 Results for this AUTO DIFFERENTIAL AM [employer] procedure are in the results section. PHOSPHORUS Routine 05/03/2018 4:24 Results for this AM [employer] procedure are in the results section. MAGNESIUM Routine 05/03/2018 4:24 Results for this AM [employer] procedure are in the results section. HEPATIC FUNCTION STAT 05/03/2018 4:24 Results for this PANEL AM [employer] procedure are in the results section. BASIC METABOLIC PANEL STAT 05/03/2018 4:24 Results for this (7) AM [employer] procedure are in the results section. CBC W/PLT COUNT & STAT 05/03/2018 4:24 Results for this AUTO DIFFERENTIAL AM [employer] procedure are in the results section. TRANSFUSION SERVICE 05/02/2018 6:05 REPORT - SCAN PM [employer] TISSUE EXAM AP Routine 05/02/2018 3:22 Results for this PM [employer] procedure are in the results section. LAPAROSCOPY,CHOLECYST 05/02/2018 12:00 Cholecystitis ECTOMY PM [employer] CBC W/PLT COUNT & STAT 05/02/2018 5:31 Results for this AUTO DIFFERENTIAL AM [employer] procedure are in the results section. HEPATIC FUNCTION STAT 05/02/2018 5:31 Results for this PANEL AM [employer] procedure are in the results section. BASIC METABOLIC PANEL STAT 05/02/2018 5:31 Results for this (7) AM [employer] DIS[employer]SEMBLER procedure are in the results section. CBC W/PLT COUNT & STAT 05/02/2018 5:31 Results for this AUTO DIFFERENTIAL AM [employer]ER procedure are in the results section. CBC W/PLT COUNT & Routine 05/01/2018 3:03 Results for this AUTO DIFFERENTIAL PM [employer] procedure are in the results section. HIV-1 ANTIGEN WITH Routine 05/01/2018 3:03 Results for this HIV-1/2 ANTIBODY PM [employer] procedure are in the results section. RPR Routine 05/01/2018 3:03 Results for this PM [employer] procedure are in the results section. RUBELLA ANTIBODY, IGG Routine 05/01/2018 3:03 Results for this PM [employer] procedure are in the results section. HEPATITIS B SURFACE Routine 05/01/2018 3:03 Results for this ANTIGEN PM [employer] procedure are in the results section. CBC W/PLT COUNT & Routine 05/01/2018 3:03 Results for this AUTO DIFFERENTIAL PM [employer] procedure are in the results section. TYPE AND SCREEN, Routine 05/01/2018 1:17 Results for this AUTOMATED PM [employer] procedure are in the results section. LIPASE Routine 05/01/2018 1:17 Results for this PM [employer] procedure are in the results section. AMYLASE Routine 05/01/2018 1:17 Results for this PM [employer] procedure are in the results section. COMPREHENSIVE Routine 05/01/2018 1:17 Results for this METABOLIC PANEL PM [employer] procedure are in the results section. RAPID DRUG SCREEN, Routine 05/01/2018 1:17 Results for this URINE PM [employer] procedure are in the results section. after 06/01/2017 Results CBC with platelet count + automated diff (05/03/2018 4:24 AM AUTOS DISASSEMBLER)Only the most recent of3 resultswithin the time period is included. WBC 10.8 (H) 4.0 - 10.0 K/L [facility] RBC 2.87 (L) 4.00 - 5.00 M/L [facility] Hemoglobin 9.4 (L) 12.0 - 15.5 GM/DL [facility] Hematocrit 28.2 (L) 36.0 - 46.0 % [facility] MCV 98.3 82.0 - 99.0 fL [facility] MCH 32.8 27.0 - 33.0 pg [facility] MCHC 33.3 32.0 - 36.0 GM/DL [facility] RDW 13.2 12.0 - 15.0 % [facility] Platelets 144 (L) 150 - 430 K/CU MM [facility] MPV 11.7 (H) 6.0 - 11.5 fL [facility] nRBC 0 0 - 0 /100 WBC [facility] % Neutros 76 % [facility] % Lymphs 17 % [facility] % Monos 6 % [facility] % Eos 0 % [facility] % Baso 0 % [facility] # Neutros 8.20 (H) 1.80 - 8.00 K/L [facility] # Lymphs 1.79 1.48 - 4.50 K/L [facility] # Monos 0.67 0.00 - 1.30 K/L [facility] # Eos 0.04 0.00 - 0.50 K/L [facility] # Baso 0.02 0.00 - 0.20 K/L [facility] Immature Granulocytes-Relative 1 (H) 0 - 0 % [facility] Specimen Blood Performing Organization Address City/State/Zipcode Phone Number [facility] [address] [place] [address] [phone] Phosphorus (05/03/2018 4:24 AM AUTOS DISASSEMBLER) Phosphorus 3.6 2.5 - 4.5 mg/dL [facility] Specimen Blood Performing Organization Address City/State/Zipcode Phone Number [facility] [address] [place] [address] [phone] Magnesium (05/03/2018 4:24 AM AUT[employer] DISASSEMBLER) Magnesium 1.4 (L) 1.5 - 3.0 mg/dL [facility] Specimen Blood Performing Organization Address City/[facility] Phone Number [facility] [address] [place] [address] [phone] Hepatic function panel (05/03/2018 4:24 AM AUTOS DISASSEMBLER)Only the most recent of2 resultswithin the time period is included. Protein, Total 4.9 (L) 6.0 - 8.5 gm/dL [facility] Albumin 2.8 (L) 3.5 - 5.0 g/dL [facility] Total Bilirubin 0.3 0.1 - 1.2 mg/dL [facility] Bilirubin, Direct 0.2 0.0 - 0.4 mg/dL [facility] Alkaline Phosphatase 80 30 - 115 U/L [facility] AST 52 (H) 5 - 40 U/L [facility] ALT 45 5 - 50 U/L [facility] Specimen Blood Performing Organization Address [facility] Phone Number [facility] [address] [place] [address] [phone] Basic Metabolic Panel (05/03/2018 4:24 AM AUTOS DISASSEMBLER)Only the most recent of2 resultswithin the time period is included. Sodium 139 135 - 148 meq/L [facility] Potassium 3.8 3.6 - 5.5 meq/L [facility] Chloride 109 (H) 98 - 106 meq/L [facility] CO2 24 20 - 29 meq/L [facility] BUN 7 (L) 10 - 26 mg/dL [facility] Creatinine 0.61 0.50 - 1.20 mg/dL [facility] Glucose 96 70 - 110 mg/dL [facility] Calcium 8.1 (L) 8.5 - 10.5 mg/dL [facility] EGFR 112Comment: ESTIMATED GFR IS NOT mL/min/1.73 sq m [facility] ACCURATE CREATININE CLEARANCE IN PREDICTING GLOMERULAR FILTRATION RATE. ESTIMATED GFR IS NOT APPLICABLE FOR DIALYSIS PATIENTS. Specimen Blood Performing Organization Address City/[facility] Phone Number [facility] [address] [place] [address] [phone] TRANSFUSION SERVICE REPORT - SCAN (05/02/2018 6:05 PM AUTOS DISASSEMBLER) Narrative Performed At Tissue Exam (05/02/2018 3:22 PM AUTOS DISASSEMBLER) Case Report Surgical Pathology Report Case: [id number] [facility] Authorizing Provider:Hong Kendrick,Collected: 05/02/2018 1522 MD Ordering Location: SLS PERIOPERATIVE Received: 05/05/2018 0811 SERVICES Pathologist: Narcisa Velasquez MD Specimen:Gallbladder, gallbladder DIAGNOSIS GALLBLADDER, CHOLECYSTECTOMY: [facility] - ACUTE AND CHRONIC CHOLECYSTITIS - CHOLELITHIASIS Signing Pathologist Direct Phone Line: [phone] CPT Code(s) MG/ew [facility] 12914 CLINICAL HISTORY Cholecystitis [facility] SPECIMEN SOURCE Gallbladder [facility] GROSS DESCRIPTION Specimen is received without [facility] fixative and designated as "gallbladder", is a pink-davidson cholecystectomy specimen (8.5 x 3.5 x 2.5 cm). The gallbladder is filled with green viscous bile and contains a multiple gallstones that are yellow and range in size from 0.5 to 0.8 cm in greatest dimension. One of the gallstones is embedded within the cystic duct. The gallbladder mucosa is green and velvety with no discrete lesions identified. Manager Wound Care sections of the gallbladder mucosa and cystic duct are submitted into A1. MG/ew MICROSCOPIC DESCRIPTION Performed [facility] Gross assessment was [facility] performed at [facility] Department of Pathology, [address] [place] [address] [phone], Technical component was [facility] performed at [facility] Department of Pathology, [address] [place] [phone], Professional component [facility] [employer] [facility] was performed at [facility] Department of Pathology, [address] [place] [phone], Specimen Tissue - Gallbladder Narrative Performed At Performing Organization Address City/State/Zipcode Phone Number [facility] [address] [place], [place] [address] HIV-1 Antigen with HIV-1/2 Antibody (05/01/2018 3:03 PM AUTOS DISASSEMBLER) HIV-1 Antigen with HIV 1&2 Antibody NON-REACTIVE Nonreactive [facility] Specimen Blood Performing Organization Address City/[facility] Phone Number [facility] [address] [place] [phone] Rubella antibody, IgG (05/01/2018 3:03 PM AUTOS DISASSEMBLER) Rubella Ab, Igg Mariano <0.90 (L) INDEX [facility] Comment: [facility] REFERENCE RANGE: <0.90 INDEXINTERPRETATION <0.90NOT CONSISTENT WITH IMMUNITY 0.90-0.99EQUIVOCAL > or=1.00 CONSISTENT WITH IMMUNITY The presence of Rubella IgG antibody suggests immunization or past or current infection with Rubella virus. Specimen Blood Narrative Performed At Performing Lab [facility] *QDID [employer] [facility] [address] [place] [phone] H Kaye Iqbal MD Performing Organization Address City/[facility] Phone Number [facility] [place] [address] [place] [address] RPR (05/01/2018 3:03 PM AUTOS DISASSEMBLER) RPR Nonreactive Nonreactive [facility] Specimen Blood Performing Organization Address [facility] Phone Number [facility] [address] [place] [phone] Hepatitis B surface antigen (05/01/2018 3:03 PM AUTOS DISASSEMBLER) hepatitis B Surface Ag NON-REACTIVE Nonreactive [facility] Specimen Blood Performing Organization Address City/[facility] Phone Number [facility] [address] [place] [phone] Type and screen, automated (05/01/2018 1:17 PM AUT[employer] DISASSEMBLER) ABORh O POSITIVE [facility] Antibody Screen NEGATIVE [facility] Specimen Blood Performing Organization Address City/[facility]/Zipcode Phone Number [address] [phone] [facility] Rapid drug screen, urine (05/01/2018 1:17 PM AUTOS DISASSEMBLER) Barbiturate Screen Negative Negative [facility] Benzodiazepine Screen Negative Negative [facility] Cocaine (Metab.) Screen Negative Negative [facility] Methadone Screen Negative Negative [facility] Opiate Screen Positive (A) Negative [facility] Cannabinoid Screen Negative Negative [facility] Amph/Methamph Screen Negative Negative [facility] Phencyclidine Screen Negative Negative [facility] Specimen Urine Narrative Performed At [facility] Cocaine 300 ng/mL Wqkzxpkdynd98 ng/mL Yipskyenofofay195 ng/mL Barbiturate 200 ng/mL Xfsefzhlduzpp56 ng/mL Olcawe895 ng/mL Methadone 300 ng/mL Amphetamine/ 1000 ng/mL Methamphetamine This assay provides an unconfirmed qualitative test result for the clinical management of patients in emergency situations. Chain of custody not maintained. Some ezoz-uzi-blezrry medications, as well as adulterants, may cause inaccurate results. Clinical correlation should be applied. A more comprehensive drug screen or confirmation of a detected drug may be performed upon request. To be completed for all non-assigned OB patients or any nursing suspicion To be completed for all non-assigned OB patients or any nursing suspicion To be completed for all non-assigned OB patients or any nursing suspicion To be completed for all non-assigned OB patients or any nursing suspicion To be completed for all non-assigned OB patients or any nursing suspicion To be completed for all non-assigned OB patients or any nursing suspicion To be completed for all non-assigned OB patients or any nursing suspicion To be completed for all non-assigned OB patients or any nursing suspicion Performing Organization Address [facility] Phone Number [facility] [address] [place] [address] [phone] Lipase (05/01/2018 1:17 PM AUTOS DISASSEMBLER) Lipase 4 (L) 6 - 51 U/L [facility] Specimen Blood Performing Organization Address [facility] Phone Number [facility] [address] [place] [address] [phone] Amylase (05/01/2018 1:17 PM AUTOS DISASSEMBLER) Amylase 21 (L)Comment: Specimen slightly 30 - 110 U/L [facility] hemolyzed Specimen Blood Performing Organization Address [facility] Phone Number [facility] [address] [place] [phone] Comprehensive metabolic panel (05/01/2018 1:17 PM AUTOS DISASSEMBLER) Protein, Total 5.7 (L)Comment: Specimen 6.0 - 8.5 gm/dL [facility] slightly hemolyzed Albumin 3.2 (L)Comment: Specimen 3.5 - 5.0 g/dL [facility] slightly hemolyzed Alkaline Phosphatase 86 30 - 115 U/L [facility] Total Bilirubin 0.5Comment: Specimen 0.1 - 1.2 mg/dL [facility] slightly hemolyzed Sodium 136 135 - 148 meq/L [facility] Potassium 4.0Comment: Specimen 3.6 - 5.5 meq/L [facility] slightly hemolyzed Chloride 107 (H) 98 - 106 meq/L [facility] CO2 20 20 - 29 meq/L [facility] BUN 5 (L) 10 - 26 mg/dL [facility] Creatinine 0.49 (L)Comment: 0.50 - 1.20 mg/dL [facility] Specimen slightly hemolyzed Glucose 75 70 - 110 mg/dL [facility] Calcium 8.7 8.5 - 10.5 mg/dL [facility] AST 34Comment: Specimen 5 - 40 U/L [facility] slightly hemolyzed ALT 31Comment: Specimen 5 - 50 U/L [facility] slightly hemolyzed EGFR 145Comment: ESTIMATED mL/min/1.73 sq m [facility] GFR IS NOT ACCURATE CREATININE CLEARANCE IN PREDICTING GLOMERULAR FILTRATION RATE. ESTIMATED GFR IS NOT APPLICABLE FOR DIALYSIS PATIENTS. Specimen Blood Performing Organization Address City/State/Zipcode Phone Number [facility] [address] [place] [address] after 06/01/2017 Insurance Payer Benefit Plan / Subscriber ID Type Phone Address Group MEDICAID - MEDICAID COMM xxxxxxxxx Medicaid MEDICAID [employer] HEALTH CHOICE Contracted CARE BLUE CROSS/BLUE BCBS OS xxxxxxxxxxxx PPO [phone] [address] SHIELD POS/PPO/EPO 2 [place] [address] Advance Directives For more information, please contact:[address] [phone] Code Status Date Activated Date Inactivated Comments Full Code 05/02/2018 5:00 PM This code status was determined by: Patient Full Code 05/01/2018 12:54 PM 05/02/2018 5:00 PM This code status was determined by: Patient
--- OUTSIDE RECORDS SUMMARY | 2018-06-02 03:57 | XMS REPORT | Clinical Summary ---
:1985 Author Organization [facility] Address [address] [place] [address] Care Team Providers Name Role Phone Sebastián [...] in female; 16 weeks gestation of after 06/01/2017 Family History Medical History Relation [...] CERVICAL CANCER SCREENING 2005 INFLUENZA VACCINE 12/25/2017 Procedures Procedure Name Priority Date/Time Associated Diagnosis Comments SURGICAL PATHOLOGY Routine 02/05/2018 4:22 PM Results for this REQUEST CDT procedure are in the results section. BIOPSY CERVIX Routine 02/05/2018 2:31 PM CDT SD BIOPSY SOFT Routine 02/05/2018 Results for this TISSUE NECK/CHEST procedure are in the results section. after 06/01/2017 Results Surgical pathology request (02/05/2018 4:22 PM CDT) [facility] DEPARTMENT OF PATHOLOGY AND GENOMIC MEDICINE Surgical pathology report See link below for PDF [facility] DEPARTMENT OF Lab Report PATHOLOGY AND GENOMIC MEDICINE Result status This is Final Report [facility] DEPARTMENT OF for [id number] PATHOLOGY AND GENOMIC MEDICINE Performing Organization Address City/State/Zipcode Phone Number [facility] DEPARTMENT OF PATHOLOGY [address] [place] [address] AND GENOMIC MEDICINE Soft tissue biopsy (02/05/2018) Narrative Performed At [facility] RIVERDALEMRN: [id number] AGE:32 Y SEX: FDOB: 1985 DOCTOR: JOSEF HERNANDEZ DATE OF SERVICE: 02/05/2018 [facility] Pathology Consultation Report FINAL REPORT CASE: [id number] ANATOMIC PATHOLOGY DIAGNOSIS: A. Cervix, 1:00, biopsy: [...] toto in cassette B. Gross Dictator ID BF Gross Floor Inspector ID [id number] 02/07/2018 1:52 PM MICROSCOPIC: A. [...] developed and its preference characteristics determined by [facility] Histology Laboratory, Immunohistochemistry section. It may not [...] clinical laboratory testing. Microscopic Dictator ID Microscopic Floor Inspector ID 02/07/2018 1:52 PM [facility] [address] [place] [address] after 06/01/2017 Insurance Payer Benefit Plan / Group Subscriber ID Type Phone Address [employer] [facility] xxxxxxxxx HMO BCBS BCBS OUT OF STATE xxxxxxxxxxxx PPO (Home) [address] [place] [id number] Advance Directives Patient has advance care planning documents on file. For more information, please contact:[address] [address]
--- OUTSIDE RECORDS SUMMARY | 2018-06-02 03:58 | XMS REPORT ---
:1985 Author Organization [facility] Address [address] [place] [address] [address] Care Team Providers Name Role Phone SYEDA GARY Macario Unavailable Unavailable Problems This patient has no known problems. Allergies, Adverse Reactions, Alerts This patient has no known allergies or adverse reactions. Medications This patient has no known medications. Results Test Description Test Time Test Comments Text Results Atomic Results Result Comments TISSUE EXAM 2018-05-06 11:57:00 Surgical Pathology Report Case: [id number] Authorizing Provider: Hong Kendrick, Collected: 05/02/2018 1522 Ordering Location: [facility] Received: 05/05/2018 0811 SERVICES Pathologist: Narcisa Velasquez MD Specimen: Gallbladder, gallbladder GALLBLADDER, CHOLECYSTECTOMY: - ACUTE AND CHRONIC CHOLECYSTITIS - CHOLELITHIASIS Signing Pathologist Direct Phone Line: [phone] signed by Narcisa Vleasquez MD on 05/06/2018 at 11:57 AMMG/[id number] Gallbladder Specimen is received without fixative and designated as "gallbladder", is a [...] and velvety with no discrete lesions identified. Stick Welder sections of the gallbladder mucosa and cystic duct are submitted into A1. MG/ew Performed Formerly [facility], Department of Pathology, [facility] [place] [address], [facility], Department of Pathology, [address] [place] [address], Rg. [facility], Department of Pathology, [address] [facility] [place] [address], BASIC METABOLIC PANEL 2018-05-03 05:38:00 Test Item Value Reference Range Comments SODIUM (BEAKER) (test 139 meq/L 135-148 wdsr=129) POTASSIUM (BEAKER) (test 3.8 meq/L 3.6-5.5 pnkt=362) CHLORIDE (BEAKER) (test 109 meq/L 98-106 zzwp=178) CO2 (BEAKER) (test 24 meq/L 20-29 potn=134) BLOOD UREA NITROGEN 7 mg/dL 10-26 (BEAKER) (test ageu=602) CREATININE (BEAKER) (test 0.61 mg/dL 0.50-1.20 ueor=812) GLUCOSE RANDOM (BEAKER) 96 mg/dL 70-110 (test ndij=837) CALCIUM (BEAKER) (test 8.1 mg/dL 8.5-10.5 kweg=595) EGFR (BEAKER) (test 112 mL/min/1.73 sq m ESTIMATED GFR IS NOT pifj=7821) ACCURATE CREATININE CLEARANCE IN PREDICTING GLOMERULAR FILTRATION RATE. ESTIMATED GFR IS NOT APPLICABLE FOR DIALYSIS PATIENTS. HEPATIC FUNCTION [id number] 05:38:00 Test Item Value Reference Range Comments TOTAL PROTEIN (BEAKER) (test alcb=342) 4.9 gm/dL 6.0-8.5 ALBUMIN (BEAKER) (test qtrk=7597) 2.8 g/dL 3.5-5.0 BILIRUBIN TOTAL (BEAKER) (test dhsh=687) 0.3 mg/dL 0.1-1.2 BILIRUBIN DIRECT (BEAKER) (test wior=029) 0.2 mg/dL 0.0-0.4 ALKALINE PHOSPHATASE (BEAKER) (test lawz=241) 80 U/L 30-115 AST (SGOT) (BEAKER) (test vnyz=373) 52 U/L 5-40 ALT (SGPT) (BEAKER) (test gsms=884) 45 U/L 5-50 [id number] 05:30:00 Test Item Value Reference Range Comments PHOSPHORUS (BEAKER) (test nqix=577) 3.6 mg/dL 2.5-4.5 [id number] 05:24:00 Test Item Value Reference Range Comments MAGNESIUM (BEAKER) (test nflg=331) 1.4 mg/dL 1.5-3.0 CBC W/PLT COUNT & AUTO [id number] 04:39:00 Test Item Value Reference Range Comments WHITE BLOOD CELL COUNT (BEAKER) (test uayh=808) 10.8 K/ L 4.0-10.0 RED BLOOD CELL COUNT (BEAKER) (test wsyz=994) 2.87 M/ L 4.00-5.00 HEMOGLOBIN (BEAKER) (test mwba=725) 9.4 GM/DL 12.0-15.5 HEMATOCRIT (BEAKER) (test koso=123) 28.2 % 36.0-46.0 MEAN CORPUSCULAR VOLUME (BEAKER) (test hvea=319) 98.3 fL 82.0-99.0 MEAN CORPUSCULAR HEMOGLOBIN (BEAKER) (test 32.8 pg 27.0-33.0 zebt=322) MEAN CORPUSCULAR HEMOGLOBIN CONC (BEAKER) (test 33.3 GM/DL 32.0-36.0 gjgr=753) RED CELL DISTRIBUTION WIDTH (BEAKER) (test 13.2 % 12.0-15.0 rrff=550) PLATELET COUNT (BEAKER) (test mwer=369) 144 K/CU MM 150-430 MEAN PLATELET VOLUME (BEAKER) (test rani=656) 11.7 fL 6.0-11.5 NUCLEATED RED BLOOD CELLS (BEAKER) (test 0 /100 WBC 0-0 vtav=229) NEUTROPHILS RELATIVE PERCENT (BEAKER) (test 76 % vrny=359) LYMPHOCYTES RELATIVE PERCENT (BEAKER) (test 17 % eccg=610) MONOCYTES RELATIVE PERCENT (BEAKER) (test 6 % orvt=903) EOSINOPHILS RELATIVE PERCENT (BEAKER) (test 0 % dxud=855) BASOPHILS RELATIVE PERCENT (BEAKER) (test 0 % veuz=569) NEUTROPHILS ABSOLUTE COUNT (BEAKER) (test 8.20 K/ L 1.80-8.00 xmce=340) LYMPHOCYTES ABSOLUTE COUNT (BEAKER) (test 1.79 K/ L 1.48-4.50 uafk=236) MONOCYTES ABSOLUTE COUNT (BEAKER) (test 0.67 K/ L 0.00-1.30 snfy=046) EOSINOPHILS ABSOLUTE COUNT (BEAKER) (test 0.04 K/ L 0.00-0.50 jgmy=730) BASOPHILS ABSOLUTE COUNT (BEAKER) (test 0.02 K/ L 0.00-0.20 rjeu=788) IMMATURE GRANULOCYTES-RELATIVE PERCENT (BEAKER) 1 % 0-0 (test ilzz=3222) [id number] 11:32:00 Test Item Value Reference Range Comments RPR SCREEN (BEAKER) (test pbhj=607) Nonreactive Nonreactive BASIC METABOLIC [id number] 06:38:00 Test Item Value Reference Range Comments SODIUM (BEAKER) (test 136 meq/L 135-148 tukn=946) POTASSIUM (BEAKER) (test 5.4 meq/L 3.6-5.5 Specimen markedly kldj=784) hemolyzed CHLORIDE (BEAKER) (test 108 meq/L 98-106 gzup=655) CO2 (BEAKER) (test 21 meq/L 20-29 ugpb=793) BLOOD UREA NITROGEN 6 mg/dL 10-26 (BEAKER) (test vfxh=947) CREATININE (BEAKER) (test 0.60 mg/dL 0.50-1.20 Specimen markedly avpl=128) hemolyzed GLUCOSE RANDOM (BEAKER) 74 mg/dL 70-110 (test pthf=706) CALCIUM (BEAKER) (test 7.9 mg/dL 8.5-10.5 ydbp=679) EGFR (BEAKER) (test 114 mL/min/1.73 sq m ESTIMATED GFR IS NOT xjog=5710) ACCURATE CREATININE CLEARANCE IN PREDICTING GLOMERULAR FILTRATION RATE. ESTIMATED GFR IS NOT APPLICABLE FOR DIALYSIS PATIENTS. HEPATIC FUNCTION [id number] 06:37:00 Test Item Value Reference Range Comments TOTAL PROTEIN (BEAKER) (test 5.8 gm/dL 6.0-8.5 Specimen markedly hemolyzed jihk=247) ALBUMIN (BEAKER) (test 2.9 g/dL 3.5-5.0 Specimen markedly hemolyzed gnxx=0023) BILIRUBIN TOTAL (BEAKER) (test 0.6 mg/dL 0.1-1.2 Specimen markedly hemolyzed xmmn=825) BILIRUBIN DIRECT (BEAKER) (test 0.1 mg/dL 0.0-0.4 Specimen markedly hemolyzed tcow=218) ALKALINE PHOSPHATASE (BEAKER) 80 U/L 30-115 (test coxe=664) AST (SGOT) (BEAKER) (test 58 U/L 5-40 Specimen markedly hemolyzed xgus=382) ALT (SGPT) (BEAKER) (test 42 U/L 5-50 Specimen markedly hemolyzed kxhw=739) CBC W/PLT COUNT & AUTO [id number] 06:29:00 Test Item Value Reference Range Comments WHITE BLOOD CELL COUNT (BEAKER) (test hgea=791) 9.8 K/ L 4.0-10.0 RED BLOOD CELL COUNT (BEAKER) (test szik=464) 3.19 M/ L 4.00-5.00 HEMOGLOBIN (BEAKER) (test thlw=308) 10.3 GM/DL 12.0-15.5 HEMATOCRIT (BEAKER) (test rfiq=888) 31.4 % 36.0-46.0 MEAN CORPUSCULAR VOLUME (BEAKER) (test jcwo=030) 98.4 fL 82.0-99.0 MEAN CORPUSCULAR HEMOGLOBIN (BEAKER) (test 32.3 pg 27.0-33.0 zrns=159) MEAN CORPUSCULAR HEMOGLOBIN CONC (BEAKER) (test 32.8 GM/DL 32.0-36.0 dqtt=936) RED CELL DISTRIBUTION WIDTH (BEAKER) (test 13.4 % 12.0-15.0 pqra=316) PLATELET COUNT (BEAKER) (test bcfj=511) 157 K/CU MM 150-430 MEAN PLATELET VOLUME (BEAKER) (test fqis=293) 11.3 fL 6.0-11.5 NUCLEATED RED BLOOD CELLS (BEAKER) (test 0 /100 WBC 0-0 jqej=074) NEUTROPHILS RELATIVE PERCENT (BEAKER) (test 65 % vgfc=533) LYMPHOCYTES RELATIVE PERCENT (BEAKER) (test 27 % hbek=174) MONOCYTES RELATIVE PERCENT (BEAKER) (test 6 % hqhc=816) EOSINOPHILS RELATIVE PERCENT (BEAKER) (test 1 % vkrq=899) BASOPHILS RELATIVE PERCENT (BEAKER) (test 0 % ovaz=020) NEUTROPHILS ABSOLUTE COUNT (BEAKER) (test 6.41 K/ L 1.80-8.00 xccb=104) LYMPHOCYTES ABSOLUTE COUNT (BEAKER) (test 2.62 K/ L 1.48-4.50 cwog=725) MONOCYTES ABSOLUTE COUNT (BEAKER) (test 0.56 K/ L 0.00-1.30 bvbm=718) EOSINOPHILS ABSOLUTE COUNT (BEAKER) (test 0.09 K/ L 0.00-0.50 qsca=814) BASOPHILS ABSOLUTE COUNT (BEAKER) (test 0.02 K/ L 0.00-0.20 xuuq=626) IMMATURE GRANULOCYTES-RELATIVE PERCENT (BEAKER) 1 % 0-0 (test sjnf=0586) HIV-1 ANTIGEN WITH HIV-1/2 [id number] 15:52:00 Test Item Value Reference Range Comments HIV-1 ANTIGEN WITH HIV 1\\T\\2 ANTIBODY (2) Nonreactive Nonreactive (BEAKER) (test mtxe=6082) HEPATITIS B SURFACE [id number] 15:50:00 Test Item Value Reference Range Comments HEPATITIS B SURFACE ANTIGEN (2) (BEAKER) (test Nonreactive Nonreactive uatq=9570) CBC W/PLT COUNT & AUTO [id number] 15:12:00 Test Item Value Reference Range Comments WHITE BLOOD CELL COUNT (BEAKER) (test qjev=708) 12.4 K/ L 4.0-10.0 RED BLOOD CELL COUNT (BEAKER) (test ozts=509) 3.33 M/ L 4.00-5.00 HEMOGLOBIN (BEAKER) (test cdya=645) 11.0 GM/DL 12.0-15.5 HEMATOCRIT (BEAKER) (test ozwp=566) 32.6 % 36.0-46.0 MEAN CORPUSCULAR VOLUME (BEAKER) (test jsrl=094) 97.9 fL 82.0-99.0 MEAN CORPUSCULAR HEMOGLOBIN (BEAKER) (test 33.0 pg 27.0-33.0 famw=809) MEAN CORPUSCULAR HEMOGLOBIN CONC (BEAKER) (test 33.7 GM/DL 32.0-36.0 lata=355) RED CELL DISTRIBUTION WIDTH (BEAKER) (test 13.3 % 12.0-15.0 pknp=224) PLATELET COUNT (BEAKER) (test blzn=445) 153 K/CU MM 150-430 MEAN PLATELET VOLUME (BEAKER) (test tqqw=597) 11.5 fL 6.0-11.5 NUCLEATED RED BLOOD CELLS (BEAKER) (test 0 /100 WBC 0-0 dfnb=162) NEUTROPHILS RELATIVE PERCENT (BEAKER) (test 76 % ujbj=546) LYMPHOCYTES RELATIVE PERCENT (BEAKER) (test 18 % wofz=461) MONOCYTES RELATIVE PERCENT (BEAKER) (test 5 % maao=786) EOSINOPHILS RELATIVE PERCENT (BEAKER) (test 1 % ueke=616) BASOPHILS RELATIVE PERCENT (BEAKER) (test 0 % dwtl=365) NEUTROPHILS ABSOLUTE COUNT (BEAKER) (test 9.36 K/ L 1.80-8.00 cghx=685) LYMPHOCYTES ABSOLUTE COUNT (BEAKER) (test 2.18 K/ L 1.48-4.50 rugd=093) MONOCYTES ABSOLUTE COUNT (BEAKER) (test 0.63 K/ L 0.00-1.30 zias=586) EOSINOPHILS ABSOLUTE COUNT (BEAKER) (test 0.10 K/ L 0.00-0.50 uupc=253) BASOPHILS ABSOLUTE COUNT (BEAKER) (test 0.01 K/ L 0.00-0.20 vlws=226) IMMATURE GRANULOCYTES-RELATIVE PERCENT (BEAKER) 1 % 0-0 (test tovh=0771) COMPREHENSIVE METABOLIC [id number] 14:06:00 Test Item Value Reference Range Comments TOTAL PROTEIN (BEAKER) 5.7 gm/dL 6.0-8.5 Specimen slightly (test rddp=520) hemolyzed ALBUMIN (BEAKER) (test 3.2 g/dL 3.5-5.0 Specimen slightly zfhg=9707) hemolyzed ALKALINE PHOSPHATASE 86 U/L 30-115 (BEAKER) (test logu=573) BILIRUBIN TOTAL (BEAKER) 0.5 mg/dL 0.1-1.2 Specimen slightly (test hmid=370) hemolyzed SODIUM (BEAKER) (test 136 meq/L 135-148 kvfq=646) POTASSIUM (BEAKER) (test 4.0 meq/L 3.6-5.5 Specimen slightly gpjs=673) hemolyzed CHLORIDE (BEAKER) (test 107 meq/L 98-106 sdqc=864) CO2 (BEAKER) (test 20 meq/L 20-29 cgor=298) BLOOD UREA NITROGEN 5 mg/dL 10-26 (BEAKER) (test cclm=309) CREATININE (BEAKER) (test 0.49 mg/dL 0.50-1.20 Specimen slightly ciyp=615) hemolyzed GLUCOSE RANDOM (BEAKER) 75 mg/dL 70-110 (test vmnp=362) CALCIUM (BEAKER) (test 8.7 mg/dL 8.5-10.5 uwkh=511) AST (SGOT) (BEAKER) (test 34 U/L 5-40 Specimen slightly zjqm=613) hemolyzed ALT (SGPT) (BEAKER) (test 31 U/L 5-50 Specimen slightly uvnl=608) hemolyzed EGFR (BEAKER) (test 145 mL/min/1.73 sq ESTIMATED GFR IS NOT qszc=9994) m ACCURATE CREATININE CLEARANCE IN PREDICTING GLOMERULAR FILTRATION RATE. ESTIMATED GFR IS NOT APPLICABLE FOR DIALYSIS PATIENTS. [id number] 14:06:00 Test Item Value Reference Range Comments LIPASE (BEAKER) (test axoq=603) 4 U/L 6-51 RAPID DRUG SCREEN, [id number] 14:01:00 Test Item Value Reference Range Comments BARBITURATE URINE (BEAKER) (test utcg=729) Negative Negative BENZODIAZEPINE SCREEN URINE (BEAKER) (test Negative Negative pjyh=151) COCAINE (METAB.) SCREEN (BEAKER) (test wtrp=6227) Negative Negative METHADONE SCREEN (BEAKER) (test ujmk=3203) Negative Negative OPIATE SCREEN URINE (BEAKER) (test krje=485) Positive Negative CANNABINOID SCREEN URINE (BEAKER) (test zifv=085) Negative Negative AMPH/METHAMPH SCREEN (BEAKER) (test cwqg=6069) Negative Negative PHENCYCLIDINE SCREEN URINE (BEAKER) (test kpvd=020) Negative Negative DRUG CUTOFF CONC.Cocaine 300 ng/mL Cannabinoid 50 ng/mLBenzodiazepine 200 ng/mLBarbiturate 200 ng/ mLPhencyclidine 25 ng/mLOpiate 300 ng/mLMethadone 300 ng/mLAmphetamine/ 1000 ng/mL MethamphetamineThis assay provides an unconfirmed qualitative test result for the clinical management of patients in emergency situations. Chain of custody not maintained. Some dniu-ucy-ukbbiof medications, as well as adulterants, may cause inaccurate results. Clinical correlation should be applied. A more comprehensivedrug screen or confirmation of a detected drug may be performed upon request.To be completed for allnon- assigned OB patients or any nursing suspicionTo be completed for all non- assigned OB patients orany nursing suspicionTo be completed for all non- assigned OB patients or any nursing suspicionTo be completed for all non- assigned OB patients or any nursing suspicionTo be completed for all non- assigned OB patients or any nursing suspicionTo be completed for all non- assigned OB patients or any nursing suspicionTo be completed for all non- assigned OB patients or any nursing suspicionTo be completed for all non- assigned OB patients or any nursing [id number] 14:00:00 Test Item Value Reference Range Comments AMYLASE (BEAKER) (test owtt=272) 21 U/L 30-110 Specimen slightly hemolyzed
[2018-06-02] MEDS ORDERED: OXYTOCIN/LR 20 UNIT/1,000 ML BAG IV SCH ×2 (04:00→16:00)
[2018-06-02] MEDS ORDERED: Ringers Lactate 1,000 ML IV SCH (04:00)
[2018-06-02 05:13] LABS: RPR Titer ND
[2018-06-02 05:17] LABS: Absolute Lymphocytes (CBC) 2.5 K/uL (0.7-4.9); Absolute Monocytes 0.6 K/uL (0.1-1.3); Absolute Neutrophil 9.6 K/uL (1.8-8.0); Basophils % 0.4 % (0-1.3); Eosinophils % 1.3 % (0-4.4); Hematocrit 35.2 % (36.0-45.0); Lymphocytes % 19.5 % (15.3-44.8); MPV 9.9 fL (7.6-11.3); Monocytes % 4.8 % (3.3-12.3); RBC Red Blood Cell Count 3.77 M/uL (3.86-4.86)
[2018-06-02 05:21] VITALS: BMI 29.8
[2018-06-02 05:21] LABS: Urine Appearance CLOUDY; Urine Bilirubin NEGATIVE (NEG); Urine Blood NEGATIVE (NEG); Urine Color YELLOW; Urine Glucose NEGATIVE (NEG); Urine Protein NEGATIVE (NEG); Urine Urobilinogen 0.2 mg/dL (0.2-1.0); Urine pH 6.5 (5.0-7.0)
[2018-06-02 05:22] LABS: Urine Microscopic Reflex ORDER UMIC
[2018-06-02 05:41] LABS: Urine Bacteria 20-50 /HPF (<20); Urine Culture Reflex Order REFLEXED; Urine RBC <5 /HPF (NONE SEEN)
[2018-06-02] MEDS ORDERED: LIDOCAINE 2% 20 ML MDV SQ ONE (07:39)
--- NOTE | 2018-06-02 09:21 | PREOPHP ---
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 Also had gallbladder surgery during the . She is 2.5 cm, still posterior, 5 0% effaced, vertex, -1 station, rupture of membranes, clear fluid. FHTs normal, reactive. She is co ntracting regularly at this point. We suspect that contractions should get much more firm as the mem branes are now ruptured. Labor talk given. Anticipate more rapid delivery once she achieves 4 cm or more. FLOYD/BRITTNEY Voice ID: [id number]
[2018-06-02] MEDS ORDERED: ACETAMINOPHEN 500 MG TAB PO PRN (15:21)
[2018-06-02] MEDS ORDERED: BISACODYL 10 MG RECTAL SUPP RECT PRN (15:21)
[2018-06-02] MEDS ORDERED: DIPHENHYDRAMINE 25 MG TAB/CAP PO PRN (15:21)
[2018-06-02] MEDS ORDERED: DOCUSATE NA/SENNA CONC 1 TAB PO PRN (15:21)
[2018-06-02] MEDS: IBUPROFEN 200 MG TAB PO PRN (16:49)
--- NOTE | 2018-06-02 17:26 | PN ---
The patient is eboni regularly. Baby looks very good, but she has really not made a lot of pro jim. Her cervix is still very posterior, soft, could not really reach into her cervix without caus ing significant discomfort according to the nurse's exam half an hour ago or so, though she was 3-1/2 , possibly even 4. We will go up to 24 to 26 milliunits of Pitocin if needed to get the contractions to be much more firm. The patient is very calm and has not received any medication so far which she said she did not do with her other labors either except for IV medication. Full discussion. FLOYD/BRITTNEY Voice ID: [id number] Report ID: [id number]
--- NOTE | 2018-06-02 17:51 | PN ---
The patient is on 22 milliunits, now we have increased her to 24, eboni regularly. Baby looks excellent. She is now progressed to 4.5 cm, 60% to 70% effaced, vertex, -1 station. I think, we are getting ready to make more rapid progress. FLOYD/BRTITNEY Voice ID: [id number] Report ID: [id number]
[2018-06-02] MEDS: Oxycodone HCl/Acetaminophen 1 TAB TAB PO PRN (19:25)
[2018-06-02 21:23] LABS: RPR (Rapid Plasma Reagin) NON-REACT (NON-REACT)
[2018-06-03] MEDS: Oxycodone HCl/Acetaminophen 1 TAB TAB PO PRN ×3 (00:12→08:56)
--- NOTE | 2018-06-03 02:54 | DS ---
Hospital Course: A 33-year-old, 4, para 2, AB1, 39 weeks, admitted for labor induction for p readmission talk, 2 to 2.5 cm posterior on admission, rupture of membranes, clear fluid. During the first stage of labor, received Stadol 1 mg IV. Used Lamaze breathing techniques to best advantage. Second stage of approximately 20 to 25 minutes, spontaneous vaginal delivery of an estimated 7-pound plus male infant. Nuchal cord x1. Apgars 9 and 9. Small second-degree midline laceration repaired with 2-0 chromic. Schultze delivery of the placenta, which was inspected and noted to be intact and normal. Less than 350 mL blood loss. Local infiltration for repair of laceration, 2-0 chromic runni ng stitch. Tolerated all procedures well. Rh positive, immune to Rubella, negative beta strep scree n. Final Diagnoses: 1.Term intrauterine , 39 weeks. 2.Labor induction. 3.Vaginal delivery. 4.Nuchal cord. FLOYD/BRITTNEY Voice ID: [id number] Report ID: [id number]
[2018-06-03] MEDS: IBUPROFEN 200 MG TAB PO PRN (11:54)
[2018-06-03 15:42] VITALS: BP 101/52; TEMP 96
--- NOTE | 2018-06-04 05:17 | DS ---
Date of Discharge: 06/03/2018 Hospital Course: A 33-year-old, 4, para 2, AB1, 39 weeks' gestation, had an uneventful labor and delivery; 7-pound and 6-ounce male , nuchal cord x1, loosely, Apgars 9 and 9. Small midli ne second-degree laceration repaired with 2-0 chromic under local infiltration. Schultze delivery of the placenta, which was inspected, and noted to be intact and normal. Less than 350 cc blood loss. Rh positive, immune to Rubella. Negative beta strep screen. , afebrile, ambulating, and voiding. Lochia is normal. Full dismissal instructions given. The patient was dismissed with a pre scription for tramadol 50 mg 15 tablets. She knows she can take Motrin instead if she prefers. She has had her Tdap immunization. No questions from patient's standpoint this morning. Doing well. Final Diagnoses: Term intrauterine , 39 weeks, vaginal delivery, nuchal cord. FLOYD/BRITTNEY Voice ID: [id number] Report ID: [id number]
[2018-06-05 03:28] LABS: HBsAG Nonreactive (Nonreactive)
--- NOTE | 2018-06-05 11:33 | OP ---
Surgeon: Vern Franco MD Procedure: A 33-year-old, 4, para 2, AB1, 39 weeks, admitted for labor induction. Full prea dmission talk, 2-2.5 cm posterior on admission. Rupture of membranes, clear fluid. During the first stage of labor, received Stadol 1 mg IV 1 time. Used Lamaze breathing techniques to best advantage. Second stage of labor, 20-25 minutes. Spontaneous vaginal delivery of an estimated 7 pound plus ma le infant. Nuchal cord x1. Apgars 9 and 9. Small second degree midline laceration repaired with 2- 0 chromic under local infiltration. Schultze delivery of the placenta, which was inspected and noted to be intact and normal. Less than 350 cc blood loss. Tolerated all procedures well. Rh positive, immune to Rubella. Negative beta strep screen. Final Diagnoses: Term intrauterine , 39 weeks. Vaginal delivery. Labor induction. Nuchal cord x1. FLOYD/BRITTNEY Voice ID: [id number] Report ID: [id number]
== END 2018-06-03 17:10 | disposition home or self-care (01) | DRG 807 ==
LOC: 2ND-WC 03:55
PROVIDERS: ADMIT Specialist; ATTEND Specialist
PROC: 10907ZC Drainage of Amniotic Fluid, Therapeutic from Products of Conception, Via Natural or Artificial Opening (ICD-10-PCS; principal; 2018-06-02)
PROC: 10E0XZZ Delivery of Products of Conception, External Approach (ICD-10-PCS; 2018-06-02)
PROC: 0KQM0ZZ Repair Perineum Muscle, Open Approach (ICD-10-PCS; 2018-06-02)
DX: O70.1 Second degree perineal laceration during delivery (principal); Z37.0 Single live birth; O69.81X0 Labor and delivery complicated by cord around neck, without compression, not applicable or unspecified; Z3A.39 39 weeks gestation of pregnancy; O99.334 Smoking (tobacco) complicating childbirth
CPT/HCPCS: 36415; 81003; 81015; 85025; 86592; 86901; 87086; 87088; 87340; J0595; J2210; J2550; J2590

== ENCOUNTER 2018-08-13 05:12 | Emergency (ER) | payer OTHER ==
--- OUTSIDE RECORDS SUMMARY | 2018-08-13 05:14 | XMS REPORT | Clinical Summary ---
:1985 Author Organization [facility] Address [address] [place] [address] Care Team Providers Name Role Phone CarterSebastián Tanmilena Primary Care Provider Allergies Active Allergy Reactions [...] in third trimester 05/02/2018 05/01/2018 contractions 05/01/2018 Estimated Date of Delivery Comments Yes 06/09/2018 Based on Patient Reported Encounters Date Type Specialty Care Team Description 05/14/2018 Office Visit General Surgery Aroldo, S/P laparoscopic phi Bello MD (Primary Dx) 05/02/2018 Anesthesia Event Andrew Salguero MD 05/02/2018 Surgery A[place]ldo, LAPAROSCOPY,CHOLECYSTEC JOSE Bello MD 05/01/2018 - Hospital Encounter Obstetrics Tiana Bennett 34 weeks gestation of (Primary Dx); 05/03/2018Abdulaziz Sorto MD contractions after 08/12/2017 Family History Medical History Relation Name Comments [...] more drinks on one occasion? Not asked Estimated Date of Delivery Comments Yes 06/09/2018 Based on Patient Reported Sex Assigned at Date Recorded Not on file Job Start Date Occupation Industry Not on file Not on file Not on file Travel History Travel Start Travel End No recent travel history available. Last Filed Vital Signs Vital Sign Reading Time Taken Blood Pressure 104/70 05/14/2018 3:43 PM SERVICE SPRINKLER HELPER Pulse 100 05/14/2018 3:43 PM SERVICE SPRINKLER HELPER Temperature 36.7 C (98.1 F) 05/14/2018 3:43 PM SERVICE [employer]INKLER HELPER Respiratory Rate 18 05/03/2018 7:00 AM SERVICE SPRINKLER HELPER Oxygen Saturation 95% 05/03/2018 4:49 AM SERVICE SPRINKLER HELPER Inhaled Oxygen Concentration - - Weight 71.2 kg (157 lb) 05/14/2018 3:43 PM SERVICE [employer]INKLER HELPER Height 154.9 cm (5' 1") 05/14/2018 3:43 PM SERVICE SPRINKLER HELPER Body Mass Index 29.66 05/14/2018 3:43 PM SERVICE SPRINKLER HELPER Plan of Treatment Not on file Procedures Procedure Name Priority Date/Time Associated Diagnosis Comments CBC W/PLT COUNT & STAT 05/03/2018 4:24 Results for this AUTO DIFFERENTIAL AM SERVICE SPRINKLER HELPER procedure are in the results section. PHOSPHORUS Routine 05/03/2018 4:24 Results for this AM SERVICE [employer]INKLER HELPER procedure are in the results section. MAGNESIUM Routine 05/03/2018 4:24 Results for this AM [employer]ICE [employer]INKLER HELPER procedure are in the results section. HEPATIC FUNCTION STAT 05/03/2018 4:24 Results for this PANEL AM [employer]ICE [employer] HELPER procedure are in the results section. BASIC METABOLIC PANEL STAT 05/03/2018 4:24 Results for this (7) AM SERVICE [employer]INKLER HELPER procedure are in the results section. CBC W/PLT COUNT & STAT 05/03/2018 4:24 Results for this AUTO DIFFERENTIAL AM SERVICE SPRINKLER HELPER procedure are in the results section. TRANSFUSION SERVICE 05/02/2018 6:05 REPORT - SCAN PM SERVICE SPRINKLER HELPER TISSUE EXAM AP Routine 05/02/2018 3:22 Results for this PM [employer]ICE [employer]LER HELPER procedure are in the results section. LAPAROSCOPY,CHOLECYST 05/02/2018 12:00 Cholecystitis ECTOMY PM [employer]ICE [employer]LER HELPER CBC W/PLT COUNT & STAT 05/02/2018 5:31 Results for this AUTO DIFFERENTIAL AM [employer]ICE [employer]INKL[employer] HELPER procedure are in the results section. HEPATIC FUNCTION STAT 05/02/2018 5:31 Results for this PANEL AM [employer]ICE [employer]INKLER HELPER procedure are in the results section. BASIC METABOLIC PANEL STAT 05/02/2018 5:31 Results for this (7) AM SERVICE SPRINKLER HELPER procedure are in the results section. CBC W/PLT COUNT & STAT 05/02/2018 5:31 Results for this AUTO DIFFERENTIAL AM SERVICE [employer]INKLER HELPER procedure are in the results section. CBC W/PLT COUNT & Routine 05/01/2018 3:03 Results for this AUTO DIFFERENTIAL PM [employer]ICE [employer]INKLER HELPER procedure are in the results section. HIV-1 ANTIGEN WITH Routine 05/01/2018 3:03 Results for this HIV-1/2 ANTIBODY PM [employer]INKLER HELPER procedure are in the results section. RPR Routine 05/01/2018 3:03 Results for this PM SERVICE SPRINKLER HELPER procedure are in the results section. RUBELLA ANTIBODY, IGG Routine 05/01/2018 3:03 Results for this PM [employer]ICE SPRINKLER HELPER procedure are in the results section. HEPATITIS B SURFACE Routine 05/01/2018 3:03 Results for this ANTIGEN PM [employer]ICE SPRINKLER HELPER procedure are in the results section. CBC W/PLT COUNT & Routine 05/01/2018 3:03 Results for this AUTO DIFFERENTIAL PM SERVICE SPRINKLER HELPER procedure are in the results section. TYPE AND SCREEN, Routine 05/01/2018 1:17 Results for this AUTOMATED PM [employer]ICE [employer]INKLER HELPER procedure are in the results section. LIPASE Routine 05/01/2018 1:17 Results for this PM [employer]ICE [employer]INKLER HELPER procedure are in the results section. AMYLASE Routine 05/01/2018 1:17 Results for this PM [employer]ICE [employer]INKLER HELPER procedure are in the results section. COMPREHENSIVE Routine 05/01/2018 1:17 Results for this METABOLIC PANEL PM [employer]ICE [employer]INKLER HELPER procedure are in the results section. RAPID DRUG SCREEN, Routine 05/01/2018 1:17 Results for this URINE PM SERVICE SPRINKLER HELPER procedure are in the results section. after 08/12/2017 Results CBC with platelet count + automated diff (05/03/2018 4:24 AM SERVICE SPRINKLER HELPER)Only the most recent of3 resultswithin the time [...] Blood Performing Organization Address City/State/Zipcode Phone Number [facility] [address] [place], [place] [address] [phone] Phosphorus (05/03/2018 4:24 AM SERVICE SPRINKLER HELPER) Phosphorus 3.6 2.5 - 4.5 mg/dL [facility] Specimen Blood Performing Organization Address City/[facility]/Zipcode Phone Number [facility] [address] [place], [place] [address] [phone] Magnesium (05/03/2018 4:24 AM SERVICE SPRINKLER HELPER) Magnesium 1.4 (L) 1.5 - 3.0 mg/dL [facility] Specimen Blood Performing Organization Address City/[facility] Phone Number [facility] [address] [place], [place] [phone] Hepatic function panel (05/03/2018 4:24 AM SERVICE SPRINKLER HELPER)Only the most recent of2 resultswithin the time period is included. Protein, Total 4.9 (L) 6.0 - 8.5 gm/dL [facility] Albumin 2.8 (L) 3.5 - 5.0 g/dL [facility] Total Bilirubin 0.3 0.1 - 1.2 mg/dL [facility] Bilirubin, Direct 0.2 0.0 - 0.4 mg/dL [facility] Alkaline Phosphatase 80 30 - 115 U/L [facility] AST 52 (H) 5 - 40 U/L [facility] ALT 45 5 - 50 U/L [facility] Specimen Blood Performing Organization Address [facility] Phone Number [facility] [address] [place], [place] [address] Basic Metabolic Panel (05/03/2018 4:24 AM SERVICE SPRINKLER HELPER)Only the most recent of2 resultswithin the time period is included. Sodium 139 135 - 148 meq/L [facility] Potassium 3.8 3.6 - 5.5 meq/L [facility] Chloride 109 (H) 98 - 106 meq/L [facility] CO2 24 20 - 29 meq/L [facility] BUN 7 (L) 10 - 26 mg/dL [facility] Creatinine 0.61 0.50 - 1.20 mg/dL [facility] Glucose 96 70 - 110 mg/dL [facility] Calcium 8.1 (L) 8.5 - 10.5 mg/dL [facility] EGFR 112Comment: ESTIMATED GFR IS NOT mL/min/1.73 sq m [facility] ACCURATE CREATININE CLEARANCE IN PREDICTING GLOMERULAR FILTRATION RATE. ESTIMATED GFR IS NOT APPLICABLE FOR DIALYSIS PATIENTS. Specimen Blood Performing Organization Address [facility] Phone Number [facility] [address] [place], [place] [address] [phone] TRANSFUSION SERVICE REPORT - SCAN (05/02/2018 6:05 PM SERVICE SPRINKLER HELPER) Narrative Performed At Tissue Exam (05/02/2018 3:22 PM SERVICE SPRINKLER HELPER) Case Report Surgical Pathology Report Case: [id number] [facility] Authorizing Provider:Hong Kendrick,Collected: 05/02/2018 1522 Ordering Location: [facility]IVE Received: 05/05/2018 0811 SERVICES Pathologist: Narcisa Velasquez MD Specimen:Gallbladder, gallbladder DIAGNOSIS GALLBLADDER, CHOLECYSTECTOMY: [facility] - ACUTE AND CHRONIC CHOLECYSTITIS - CHOLELITHIASIS Signing Pathologist Direct Phone Line: [phone] CPT Code(s) MG/ew [facility] [address] CLINICAL HISTORY Cholecystitis [facility] SPECIMEN SOURCE Gallbladder [facility] GROSS DESCRIPTION Specimen is received without [facility] fixative and designated as "gallbladder", is [...] and velvety with no discrete lesions identified. Ware Tester sections of the gallbladder mucosa and cystic duct are submitted into A1. MG/ew MICROSCOPIC DESCRIPTION Performed [facility] Gross assessment was [facility] performed at [facility] Department of Pathology, [address] [place] [id number], Technical component was [facility] performed at [facility] Department of Pathology, [address] [place] [id number], Professional component [facility] was performed at [facility], Department of Pathology, [address] [place] [id number], Specimen Tissue - Gallbladder Narrative Performed At Performing Organization Address City/State/Zipcode Phone Number [facility] [address] [place] [phone] HIV-1 Antigen with HIV-1/2 Antibody (05/01/2018 3:03 PM SERVICE SPRINKLER HELPER) HIV-1 Antigen with HIV 1&2 Antibody NON-REACTIVE Nonreactive [facility] Specimen Blood Performing Organization Address City/State/Zipcode Phone Number [facility] [address] [place], [place] [phone] Rubella antibody, IgG (05/01/2018 3:03 PM SERVICE SPRINKLER HELPER) Rubella Ab, Igg Mariano <0.90 (L) INDEX [facility] Comment: [facility] REFERENCE RANGE: <0.90 INDEXINTERPRETATION <0.90NOT CONSISTENT WITH IMMUNITY 0.90-0.99EQUIVOCAL > or=1.00 CONSISTENT WITH IMMUNITY The presence of Rubella IgG antibody suggests immunization or past or current infection with Rubella virus. Specimen Blood Narrative Performed At Performing Lab [facility] *[facility] [address] [place] [phone] Joseph Iqbal MD Performing Organization Address City/State/[facility] Phone Number [facility] [place] [address] [place] [address] RPR (05/01/2018 3:03 PM SERVICE SPRINKLER HELPER) RPR Nonreactive Nonreactive [facility] Specimen Blood Performing Organization Address City/[facility]/Zipcode Phone Number [facility] [address] [place], [place] [phone] Hepatitis B surface antigen (05/01/2018 3:03 PM SERVICE SPRINKLER HELPER) hepatitis B Surface Ag NON-REACTIVE Nonreactive [facility] Specimen Blood Performing Organization Address [facility] Phone Number [facility] [address] [place], [place] [phone] Type and screen, automated (05/01/2018 1:17 PM SERVICE SPRINKLER HELPER) ABORh O POSITIVE [facility] Antibody Screen NEGATIVE [facility] Specimen Blood Performing Organization Address City/[facility]/Zipcode Phone Number [facility] [address] [place], [place] [phone] [facility] Rapid drug screen, urine (05/01/2018 1:17 PM SERVICE SPRINKLER HELPER) Barbiturate Screen Negative Negative [facility] Benzodiazepine Screen Negative Negative [facility] Cocaine (Metab.) Screen Negative Negative [facility] Methadone Screen Negative Negative [facility] Opiate Screen Positive (A) Negative [facility] Cannabinoid Screen Negative Negative [facility] Amph/Methamph Screen Negative Negative [facility] Phencyclidine Screen Negative Negative [facility] Specimen Urine Narrative Performed At [facility] Cocaine 300 ng/mL Ojmdupzwlmw84 ng/mL Pwgnpuyglzbclu615 ng/mL Barbiturate 200 ng/mL Txuwlrxdepkfk42 ng/mL Cvecsg085 ng/mL Methadone 300 ng/mL Amphetamine/ 1000 ng/mL Methamphetamine This assay provides an unconfirmed qualitative test result for the clinical management of patients in emergency situations. Chain of custody not maintained. Some neit-hdn-hcnylnf medications, as well as adulterants, may cause [...] or any nursing suspicion Performing Organization Address [facility] Phone Number [address] [address] Lipase (05/01/2018 1:17 PM SERVICE SPRINKLER HELPER) Lipase 4 (L) 6 - 51 U/L [facility] Specimen Blood Performing Organization Address [facility] Number [address] [phone] Amylase (05/01/2018 1:17 PM SERVICE SPRINKLER HELPER) Amylase 21 (L)Comment: Specimen slightly 30 - 110 U/L [facility] hemolyzed Specimen Blood Performing Organization Address [facility] Number [address] [address] Comprehensive metabolic panel (05/01/2018 1:17 PM SERVICE SPRINKLER HELPER) Protein, Total 5.7 (L)Comment: Specimen 6.0 - 8.5 gm/dL [facility] slightly hemolyzed Albumin 3.2 (L)Comment: Specimen 3.5 - 5.0 g/dL [facility] slightly hemolyzed Alkaline Phosphatase 86 30 - 115 U/L [facility] Total Bilirubin 0.5Comment: Specimen 0.1 - 1.2 mg/dL [facility] slightly hemolyzed Sodium 136 135 - 148 meq/L [facility] Potassium 4.0Comment: Specimen 3.6 - 5.5 meq/L [facility] slightly hemolyzed Chloride 107 (H) 98 - 106 meq/L [facility] CO2 20 20 - 29 meq/L [facility] BUN 5 (L) 10 - 26 mg/dL [facility] Creatinine 0.49 (L)Comment: 0.50 - 1.20 mg/dL [facility] Specimen slightly hemolyzed Glucose 75 70 - 110 mg/dL [facility] Calcium 8.7 8.5 - 10.5 mg/dL [facility] AST 34Comment: Specimen 5 - 40 U/L [facility] slightly hemolyzed ALT 31Comment: Specimen 5 - 50 U/L [facility] slightly hemolyzed EGFR 145Comment: ESTIMATED mL/min/1.73 sq m [facility] GFR IS NOT ACCURATE CREATININE CLEARANCE IN PREDICTING GLOMERULAR FILTRATION RATE. ESTIMATED GFR IS NOT APPLICABLE FOR DIALYSIS PATIENTS. Specimen Blood Performing Organization Address City/State/Zipcode Phone Number [facility] [address] [place] [address] after 08/12/2017 Insurance Payer Benefit Plan / Subscriber ID Type Phone Address Group MEDICAID - MEDICAID COMM xxxxxxxxx Medicaid MEDICAID MGD HEALTH CHOICE Contracted CARE BLUE CROSS/BLUE BS OS xxxxxxxxxxxx PPO [phone] [address] SHIELD POS/PPO/EPO 2 [place] [address] Advance Directives For more information, please contact:[address] [phone] Code Status Date Activated Date Inactivated Comments Full Code 05/02/2018 5:00 PM This code status was determined by: Patient Full Code 05/01/2018 12:54 PM 05/02/2018 5:00 PM This code status was determined by: Patient
--- OUTSIDE RECORDS SUMMARY | 2018-08-13 05:14 | XMS REPORT | Clinical Summary ---
:1985 Author Organization [facility] Address [address] [place] [address] Care Team Providers Name Role Phone Sebastián [...] Take by mouth. 0 Active Active Problems Comments Yes No additional problems on file Encounters Date Type Specialty Care Team Description 07/28/2018 Telephone Obstetrics and Josef Hernandez Gynecology MD Trista 02/12/2018 Telephone Gynecologic Oncology Dara An RN 02/11/2018 Abstract Gynecologic Oncology Josef Hernandez MD 02/05/2018 Lab Lab Josef Hernandez MD 02/05/2018 Office Visit Gynecologic Oncology Josef Hernandez HGSIL (high grade squamous intraepithelial lesion) on Pap smear of cervix (Primary Dx); MD Trista HPV in female; 16 weeks gestation of after 08/12/2017 Family History Medical History Relation Name Comments Prostate cancer Father Breast cancer Maternal Grandmother Relation Name Status Comments Father Alive Maternal Grandmother Social History Tobacco Use Types Packs/Day Years Used Date Smoker, Current Status Unknown Cigarettes 0.5 12 Smokeless Tobacco: Never Used Alcohol Use Drinks/Week oz/Week Comments No Comments Yes Sex Assigned at Date Recorded [...] BIOPSY CERVIX Routine 02/05/2018 2:31 PM CDT NM BIOPSY SOFT Routine 02/05/2018 Results for this TISSUE NECK/CHEST procedure are in the results section. after 08/12/2017 Results Surgical pathology request (02/05/2018 4:22 PM CDT) [facility] DEPARTMENT OF PATHOLOGY AND GENOMIC MEDICINE Surgical pathology report See link below for PDF [facility] DEPARTMENT OF Lab Report PATHOLOGY AND GENOMIC MEDICINE Result status This is Final Report [facility] DEPARTMENT OF for [id number] PATHOLOGY AND GENOMIC MEDICINE Performing Organization Address City/State/Zipcode Phone Number [facility] DEPARTMENT OF PATHOLOGY [address] [place] [address] AND GENOMIC MEDICINE Soft tissue biopsy (02/05/2018) Narrative Performed At MARIO SANDOVALMRN: [id number] AGE:32 Y SEX: FDOB: 1985 DOCTOR: JOSEF HERNANDEZ DATE OF SERVICE: 02/05/2018 [facility] Pathology Consultation Report FINAL REPORT CASE: [id number] ANATOMIC PATHOLOGY DIAGNOSIS: A. Cervix, 1:00, biopsy: [...] cassette B. Gross Dictator ID BF Gross Recreation Facilities Supervisor ID [id number] 02/07/2018 1:52 PM MICROSCOPIC: A. [...] developed and its preference characteristics determined by [facility]ology Laboratory, Immunohistochemistry section. It may not [...] clinical laboratory testing. Microscopic Dictator ID Microscopic Recreation Facilities Supervisor ID 02/07/2018 1:[address] [address] after 08/12/2017 Insurance Payer Benefit Plan / Group Subscriber ID Type Phone Address [employer] [facility] [facility] xxxxxxxxx HMO BCBS BCBS OUT OF STATE xxxxxxxxxxxx PPO Advance Directives Patient has advance care planning documents on file. For more information, please contact:[address] [address]
--- OUTSIDE RECORDS SUMMARY | 2018-08-13 05:15 | XMS REPORT ---
:1985 Author Organization [facility] Address [address] [place] [address] [address] Care Team Providers Name Role Phone SYEDA GARYEctor Unavailable Unavailable Problems This patient has no known problems. Allergies, Adverse Reactions, Alerts This patient has no known allergies or adverse reactions. Medications This patient has no known medications. Results Test Description Test Time Test Comments Text Results Atomic Results Result Comments TISSUE EXAM 2018-05-06 11:57:00 Surgical Pathology Report Case: [id number] Authorizing Provider: Hong Kendrick, Collected: 05/02/2018 Sam HUNG Ordering Location: [facility] Received: 05/05/2018 0811 SERVICES Pathologist: Narcisa Velasquez MD Specimen: Gallbladder, gallbladder GALLBLADDER, CHOLECYSTECTOMY: - ACUTE AND CHRONIC CHOLECYSTITIS - CHOLELITHIASIS Signing Pathologist Direct Phone Line: [phone] signed by Narcisa Velasquez MD on 05/06/2018 at 11:57 AMMG/[id number] Gallbladder Specimen is received without fixative and [...] and velvety with no discrete lesions identified. Laser Set Up Operator sections of the gallbladder mucosa and cystic duct are submitted into A1. MG/ew Performed [facility], Department of Pathology, [address] [place] [address], Hltjdc [facility], Department of Pathology, [address] [place] [address], Uw. [facility], Department of Pathology, [facility] [place] [address], BASIC METABOLIC PANEL 2018-05-03 05:38:00 Test Item Value Reference Range Comments SODIUM (BEAKER) (test 139 meq/L 135-148 vgnm=466) POTASSIUM (BEAKER) (test 3.8 meq/L 3.6-5.5 qwbi=016) CHLORIDE (BEAKER) (test 109 meq/L 98-106 fhcp=516) CO2 (BEAKER) (test 24 meq/L 20-29 iyya=558) BLOOD UREA NITROGEN 7 mg/dL 10-26 (BEAKER) (test azeq=852) CREATININE (BEAKER) (test 0.61 mg/dL 0.50-1.20 szbh=141) GLUCOSE RANDOM (BEAKER) 96 mg/dL 70-110 (test wtnm=718) CALCIUM (BEAKER) (test 8.1 mg/dL 8.5-10.5 tdvj=210) EGFR (BEAKER) (test 112 mL/min/1.73 sq m ESTIMATED GFR IS NOT shvq=0667) ACCURATE CREATININE CLEARANCE IN PREDICTING GLOMERULAR FILTRATION RATE. ESTIMATED GFR IS NOT APPLICABLE FOR DIALYSIS PATIENTS. HEPATIC FUNCTION [id number] 05:38:00 Test Item Value Reference Range Comments TOTAL PROTEIN (BEAKER) (test xbkg=912) 4.9 gm/dL 6.0-8.5 ALBUMIN (BEAKER) (test oudn=4474) 2.8 g/dL 3.5-5.0 BILIRUBIN TOTAL (BEAKER) (test xgpw=136) 0.3 mg/dL 0.1-1.2 BILIRUBIN DIRECT (BEAKER) (test acnw=224) 0.2 mg/dL 0.0-0.4 ALKALINE PHOSPHATASE (BEAKER) (test fbat=060) 80 U/L 30-115 AST (SGOT) (BEAKER) (test vnbx=308) 52 U/L 5-40 ALT (SGPT) (BEAKER) (test pjrq=730) 45 U/L 5-50 [id number] 05:30:00 Test Item Value Reference Range Comments PHOSPHORUS (BEAKER) (test zyrm=582) 3.6 mg/dL 2.5-4.5 [id number] 05:24:00 Test Item Value Reference Range Comments MAGNESIUM (BEAKER) (test wfli=473) 1.4 mg/dL 1.5-3.0 CBC W/PLT COUNT & AUTO [id number] 04:39:00 Test Item Value Reference Range Comments WHITE BLOOD CELL COUNT (BEAKER) (test lllj=241) 10.8 K/ L 4.0-10.0 RED BLOOD CELL COUNT (BEAKER) (test xpue=136) 2.87 M/ L 4.00-5.00 HEMOGLOBIN (BEAKER) (test qexu=629) 9.4 GM/DL 12.0-15.5 HEMATOCRIT (BEAKER) (test wxfm=964) 28.2 % 36.0-46.0 MEAN CORPUSCULAR VOLUME (BEAKER) (test yyhl=337) 98.3 fL 82.0-99.0 MEAN CORPUSCULAR HEMOGLOBIN (BEAKER) (test 32.8 pg 27.0-33.0 mndc=816) MEAN CORPUSCULAR HEMOGLOBIN CONC (BEAKER) (test 33.3 GM/DL 32.0-36.0 lmnz=252) RED CELL DISTRIBUTION WIDTH (BEAKER) (test 13.2 % 12.0-15.0 bfuq=075) PLATELET COUNT (BEAKER) (test evly=898) 144 K/CU MM 150-430 MEAN PLATELET VOLUME (BEAKER) (test jwrd=517) 11.7 fL 6.0-11.5 NUCLEATED RED BLOOD CELLS (BEAKER) (test 0 /100 WBC 0-0 fhxb=209) NEUTROPHILS RELATIVE PERCENT (BEAKER) (test 76 % aqjx=111) LYMPHOCYTES RELATIVE PERCENT (BEAKER) (test 17 % wjcg=196) MONOCYTES RELATIVE PERCENT (BEAKER) (test 6 % muqg=322) EOSINOPHILS RELATIVE PERCENT (BEAKER) (test 0 % qpny=209) BASOPHILS RELATIVE PERCENT (BEAKER) (test 0 % npew=943) NEUTROPHILS ABSOLUTE COUNT (BEAKER) (test 8.20 K/ L 1.80-8.00 imhn=071) LYMPHOCYTES ABSOLUTE COUNT (BEAKER) (test 1.79 K/ L 1.48-4.50 hnkk=765) MONOCYTES ABSOLUTE COUNT (BEAKER) (test 0.67 K/ L 0.00-1.30 vraf=451) EOSINOPHILS ABSOLUTE COUNT (BEAKER) (test 0.04 K/ L 0.00-0.50 zeeh=371) BASOPHILS ABSOLUTE COUNT (BEAKER) (test 0.02 K/ L 0.00-0.20 efyq=186) IMMATURE GRANULOCYTES-RELATIVE PERCENT (BEAKER) 1 % 0-0 (test nxkf=9603) [id number] 11:32:00 Test Item Value Reference Range Comments RPR SCREEN (BEAKER) (test utes=272) Nonreactive Nonreactive BASIC METABOLIC [id number] 06:38:00 Test Item Value Reference Range Comments SODIUM (BEAKER) (test 136 meq/L 135-148 crnr=945) POTASSIUM (BEAKER) (test 5.4 meq/L 3.6-5.5 Specimen markedly exwz=216) hemolyzed CHLORIDE (BEAKER) (test 108 meq/L 98-106 wdew=387) CO2 (BEAKER) (test 21 meq/L 20-29 kvku=107) BLOOD UREA NITROGEN 6 mg/dL 10-26 (BEAKER) (test tqev=173) CREATININE (BEAKER) (test 0.60 mg/dL 0.50-1.20 Specimen markedly tyul=537) hemolyzed GLUCOSE RANDOM (BEAKER) 74 mg/dL 70-110 (test avaf=847) CALCIUM (BEAKER) (test 7.9 mg/dL 8.5-10.5 cppj=040) EGFR (BEAKER) (test 114 mL/min/1.73 sq m ESTIMATED GFR IS NOT oirr=7532) ACCURATE CREATININE CLEARANCE IN PREDICTING GLOMERULAR FILTRATION RATE. ESTIMATED GFR IS NOT APPLICABLE FOR DIALYSIS PATIENTS. HEPATIC FUNCTION [id number] 06:37:00 Test Item Value Reference Range Comments TOTAL PROTEIN (BEAKER) (test 5.8 gm/dL 6.0-8.5 Specimen markedly hemolyzed depi=223) ALBUMIN (BEAKER) (test 2.9 g/dL 3.5-5.0 Specimen markedly hemolyzed ppol=2817) BILIRUBIN TOTAL (BEAKER) (test 0.6 mg/dL 0.1-1.2 Specimen markedly hemolyzed orlg=595) BILIRUBIN DIRECT (BEAKER) (test 0.1 mg/dL 0.0-0.4 Specimen markedly hemolyzed gqzt=721) ALKALINE PHOSPHATASE (BEAKER) 80 U/L 30-115 (test yndw=598) AST (SGOT) (BEAKER) (test 58 U/L 5-40 Specimen markedly hemolyzed ynxa=706) ALT (SGPT) (BEAKER) (test 42 U/L 5-50 Specimen markedly hemolyzed acvp=313) CBC W/PLT COUNT & AUTO [id number] 06:29:00 Test Item Value Reference Range Comments WHITE BLOOD CELL COUNT (BEAKER) (test vivp=470) 9.8 K/ L 4.0-10.0 RED BLOOD CELL COUNT (BEAKER) (test fufu=957) 3.19 M/ L 4.00-5.00 HEMOGLOBIN (BEAKER) (test bvno=575) 10.3 GM/DL 12.0-15.5 HEMATOCRIT (BEAKER) (test tbnm=643) 31.4 % 36.0-46.0 MEAN CORPUSCULAR VOLUME (BEAKER) (test efxq=038) 98.4 fL 82.0-99.0 MEAN CORPUSCULAR HEMOGLOBIN (BEAKER) (test 32.3 pg 27.0-33.0 mdod=820) MEAN CORPUSCULAR HEMOGLOBIN CONC (BEAKER) (test 32.8 GM/DL 32.0-36.0 kgbu=992) RED CELL DISTRIBUTION WIDTH (BEAKER) (test 13.4 % 12.0-15.0 uhxe=864) PLATELET COUNT (BEAKER) (test jvtb=278) 157 K/CU MM 150-430 MEAN PLATELET VOLUME (BEAKER) (test fyxv=547) 11.3 fL 6.0-11.5 NUCLEATED RED BLOOD CELLS (BEAKER) (test 0 /100 WBC 0-0 gcsy=519) NEUTROPHILS RELATIVE PERCENT (BEAKER) (test 65 % blur=087) LYMPHOCYTES RELATIVE PERCENT (BEAKER) (test 27 % bsjv=181) MONOCYTES RELATIVE PERCENT (BEAKER) (test 6 % vyws=397) EOSINOPHILS RELATIVE PERCENT (BEAKER) (test 1 % ykyg=912) BASOPHILS RELATIVE PERCENT (BEAKER) (test 0 % mueg=126) NEUTROPHILS ABSOLUTE COUNT (BEAKER) (test 6.41 K/ L 1.80-8.00 tpti=541) LYMPHOCYTES ABSOLUTE COUNT (BEAKER) (test 2.62 K/ L 1.48-4.50 dyep=342) MONOCYTES ABSOLUTE COUNT (BEAKER) (test 0.56 K/ L 0.00-1.30 uosb=376) EOSINOPHILS ABSOLUTE COUNT (BEAKER) (test 0.09 K/ L 0.00-0.50 tvxt=763) BASOPHILS ABSOLUTE COUNT (BEAKER) (test 0.02 K/ L 0.00-0.20 elcz=740) IMMATURE GRANULOCYTES-RELATIVE PERCENT (BEAKER) 1 % 0-0 (test xdjz=6708) HIV-1 ANTIGEN WITH HIV-1/2 [id number] 15:52:00 Test Item Value Reference Range Comments HIV-1 ANTIGEN WITH HIV 1\\T\\2 ANTIBODY (2) Nonreactive Nonreactive (BEAKER) (test cbrq=7660) HEPATITIS B SURFACE [id number] 15:50:00 Test Item Value Reference Range Comments HEPATITIS B SURFACE ANTIGEN (2) (BEAKER) (test Nonreactive Nonreactive ogkk=2663) CBC W/PLT COUNT & AUTO [id number] 15:12:00 Test Item Value Reference Range Comments WHITE BLOOD CELL COUNT (BEAKER) (test avey=457) 12.4 K/ L 4.0-10.0 RED BLOOD CELL COUNT (BEAKER) (test nfut=921) 3.33 M/ L 4.00-5.00 HEMOGLOBIN (BEAKER) (test cbrh=794) 11.0 GM/DL 12.0-15.5 HEMATOCRIT (BEAKER) (test jpkj=115) 32.6 % 36.0-46.0 MEAN CORPUSCULAR VOLUME (BEAKER) (test xktk=734) 97.9 fL 82.0-99.0 MEAN CORPUSCULAR HEMOGLOBIN (BEAKER) (test 33.0 pg 27.0-33.0 kzoh=069) MEAN CORPUSCULAR HEMOGLOBIN CONC (BEAKER) (test 33.7 GM/DL 32.0-36.0 gpbz=990) RED CELL DISTRIBUTION WIDTH (BEAKER) (test 13.3 % 12.0-15.0 cxvx=488) PLATELET COUNT (BEAKER) (test ucuh=833) 153 K/CU MM 150-430 MEAN PLATELET VOLUME (BEAKER) (test llnn=045) 11.5 fL 6.0-11.5 NUCLEATED RED BLOOD CELLS (BEAKER) (test 0 /100 WBC 0-0 ofyc=883) NEUTROPHILS RELATIVE PERCENT (BEAKER) (test 76 % ipue=504) LYMPHOCYTES RELATIVE PERCENT (BEAKER) (test 18 % gfbx=643) MONOCYTES RELATIVE PERCENT (BEAKER) (test 5 % fzaj=959) EOSINOPHILS RELATIVE PERCENT (BEAKER) (test 1 % srpu=259) BASOPHILS RELATIVE PERCENT (BEAKER) (test 0 % wmtl=460) NEUTROPHILS ABSOLUTE COUNT (BEAKER) (test 9.36 K/ L 1.80-8.00 bhmx=640) LYMPHOCYTES ABSOLUTE COUNT (BEAKER) (test 2.18 K/ L 1.48-4.50 rxjc=321) MONOCYTES ABSOLUTE COUNT (BEAKER) (test 0.63 K/ L 0.00-1.30 atkm=810) EOSINOPHILS ABSOLUTE COUNT (BEAKER) (test 0.10 K/ L 0.00-0.50 pwrf=420) BASOPHILS ABSOLUTE COUNT (BEAKER) (test 0.01 K/ L 0.00-0.20 cdjc=600) IMMATURE GRANULOCYTES-RELATIVE PERCENT (BEAKER) 1 % 0-0 (test fnyz=8561) COMPREHENSIVE METABOLIC [id number] 14:06:00 Test Item Value Reference Range Comments TOTAL PROTEIN (BEAKER) 5.7 gm/dL 6.0-8.5 Specimen slightly (test pjoq=255) hemolyzed ALBUMIN (BEAKER) (test 3.2 g/dL 3.5-5.0 Specimen slightly lahw=7397) hemolyzed ALKALINE PHOSPHATASE 86 U/L 30-115 (BEAKER) (test icgs=882) BILIRUBIN TOTAL (BEAKER) 0.5 mg/dL 0.1-1.2 Specimen slightly (test ubcx=275) hemolyzed SODIUM (BEAKER) (test 136 meq/L 135-148 bxye=558) POTASSIUM (BEAKER) (test 4.0 meq/L 3.6-5.5 Specimen slightly rrec=194) hemolyzed CHLORIDE (BEAKER) (test 107 meq/L 98-106 mvmh=059) CO2 (BEAKER) (test 20 meq/L 20-29 gtxs=109) BLOOD UREA NITROGEN 5 mg/dL 10-26 (BEAKER) (test zzvp=264) CREATININE (BEAKER) (test 0.49 mg/dL 0.50-1.20 Specimen slightly xjlr=833) hemolyzed GLUCOSE RANDOM (BEAKER) 75 mg/dL 70-110 (test grav=353) CALCIUM (BEAKER) (test 8.7 mg/dL 8.5-10.5 xcpi=496) AST (SGOT) (BEAKER) (test 34 U/L 5-40 Specimen slightly azio=871) hemolyzed ALT (SGPT) (BEAKER) (test 31 U/L 5-50 Specimen slightly xecl=297) hemolyzed EGFR (BEAKER) (test 145 mL/min/1.73 sq ESTIMATED GFR IS NOT ldli=4660) m ACCURATE CREATININE CLEARANCE IN PREDICTING GLOMERULAR FILTRATION RATE. ESTIMATED GFR IS NOT APPLICABLE FOR DIALYSIS PATIENTS. [id number] 14:06:00 Test Item Value Reference Range Comments LIPASE (BEAKER) (test xmcx=947) 4 U/L 6-51 RAPID DRUG SCREEN, [id number] 14:01:00 Test Item Value Reference Range Comments BARBITURATE URINE (BEAKER) (test casx=873) Negative Negative BENZODIAZEPINE SCREEN URINE (BEAKER) (test Negative Negative rzmy=423) COCAINE (METAB.) SCREEN (BEAKER) (test szwi=8614) Negative Negative METHADONE SCREEN (BEAKER) (test qyoj=7174) Negative Negative OPIATE SCREEN URINE (BEAKER) (test uhuf=227) Positive Negative CANNABINOID SCREEN URINE (BEAKER) (test psgm=227) Negative Negative AMPH/METHAMPH SCREEN (BEAKER) (test zcah=4041) Negative Negative PHENCYCLIDINE SCREEN URINE (BEAKER) (test flba=469) Negative Negative DRUG CUTOFF CONC.Cocaine 300 ng/mL Cannabinoid 50 ng/mLBenzodiazepine 200 ng/mLBarbiturate 200 ng/ mLPhencyclidine 25 ng/mLOpiate 300 ng/mLMethadone 300 ng/mLAmphetamine/ 1000 ng/mL MethamphetamineThis assay provides an unconfirmed qualitative test result for the clinical management of patients in emergency situations. Chain of custody not maintained. Some gnks-ucc-cucczml medications, as well as adulterants, may cause [...] non- assigned OB patients or any nursing [id number] 14:00:00 Test Item Value Reference Range Comments AMYLASE (BEAKER) (test rsww=739) 21 U/L 30-110 Specimen slightly hemolyzed
--- NOTE | 2018-08-13 07:27 | ER ---
Nurse's Notes [facility] Name: Bridget Haas Age: 33 yrs Sex: Female : 1985 Arrival Date: 08/13/2018 Time: 05:12 Bed 13 Private MD: Sebastián Carter E Diagnosis: Influenza due to identified novel influenza A virus Presentation: 08/13 05:21 Presenting complaint: Patient states: I have had flu like symptoms since Saturday with jb4 chills, body aches, and fever. 05:21 Transition of care: patient was not received from another setting of care. Onset of jb4 symptoms was August 11, 2018. Risk Assessment: Do you want to hurt yourself or someone else? Patient reports no desire to harm self or others. Initial Sepsis Screen: Does the patient meet any 2 criteria? HR > 90 bpm. Yes Does the patient have a suspected source of infection? No. Patient's initial sepsis screen is negative. Care prior to arrival: None. 05:21 Method Of Arrival: Ambulatory jb4 05:21 Acuity: RONAK 3 jb4 Triage Assessment: 05:21 General: Appears uncomfortable, Behavior is calm, cooperative, appropriate for age. jb4 Pain: Complains of pain in generalized body aches. Pain does not radiate. Pain currently is 8 out of 10 on a pain scale. Quality of pain is described as aching, Pain began 2-3 days ago. EENT: No signs and/or symptoms were reported regarding the EENT system. Neuro: Level of Consciousness is awake, alert, obeys commands, Oriented to person, place, time, situation. Cardiovascular: Heart tones S1 S2 present Patient's skin is warm and dry. Respiratory: Airway is patent Respiratory effort is even, unlabored, Respiratory pattern is regular, symmetrical, Breath sounds are clear bilaterally. GI: Reports vomiting once on Saturday and diarrhea that has since improved. : No signs and/or symptoms were reported regarding the genitourinary system. Derm: Skin is intact, Skin is pink, warm \T\ dry. Musculoskeletal: Circulation, motion, and sensation intact. MANAGER MEDIA: 05:21 LMP 07/18/2018 jb4 Historical: - Allergies: 05:21 PENICILLINS; jb4 - Home Meds: 05:21 None [Active]; jb4 - PMHx: 05:21 ADD/ADHD; Anxiety; Depression; headaches/migraines; Kidney stones; jb4 - PSHx: 05:21 Tonsillectomy; D \T\ C; Cholecystectomy; jb4 - Immunization history:: Adult Immunizations up to date, Flu vaccine is not up to date. - Social history:: Smoking status: Patient uses tobacco products, smokes one pack cigarettes per day. Patient/guardian denies using alcohol. - Ebola Screening: : No symptoms or risks identified at this time. Screenin:21 Abuse screen: Denies threats or abuse. Nutritional screening: No deficits noted. jb4 Tuberculosis screening: No symptoms or risk factors identified. Fall Risk None identified. Assessment: 05:21 General: see triage assessment. jb4 06:30 Reassessment: Patient appears in no apparent distress at this time. Patient and/or jb4 family updated on plan of care and expected duration. Pain level reassessed. Patient is alert, oriented x 3, equal unlabored respirations, skin warm/dry/pink. 07:00 Reassessment: RECD REPORT FROM JAYCOB DOAN. 33YO WF P/W FLU-LIKE S/S. ALL CURRENT ORDERS bp COMPLETED, DISPO PENDING. 07:42 Reassessment: PT D/C HOME AMBULATORY, DX WITH INFLUENZA A. bp Vital Signs: 05:21 BP 109 / 78; Pulse 120; Resp 16; Temp 98.6(O); Pulse Ox 97% on R/A; Weight 63.5 kg (R); jb4 Height 5 ft. 2 in. (157.48 cm) (R); Pain 8/10; 06:30 BP 103 / 75; Pulse 105; Resp 16; Pulse Ox 96% on R/A; jb4 07:42 BP 99 / 74; Pulse 111; Resp 16; Pulse Ox 97% ; bp 05:21 Body Mass Index 25.61 (63.50 kg, 157.48 cm) jb4 ED Course: 05:12 Patient arrived in ED. ds1 05:13 Larry Roe MD is Private Physician. ds1 05:13 Sebastián Carter MD is Private Physician. ds1 05:21 Arm band placed on left wrist. jb4 05:21 Patient has correct armband on for positive identification. Bed in low position. Call jb4 light in reach. Side rails up X 1. Pulse ox on. NIBP on. Warm blanket given. 05:29 Elmo Cuello, RN is Primary Nurse. jb4 05:31 Triage completed. jb4 05:49 Flu Sent. oe 06:03 Armando Martinez NP is PHCP. pm1 06:03 Bao Kuo MD is Attending Physician. pm1 07:42 No provider procedures requiring assistance completed. Patient did not have IV access bp during this emergency room visit. Administered Medications: No medications were administered Outcome: 07:26 Discharge ordered by . pm1 07:43 Patient left the ED. bp Signatures: An Stubbs ds1 Armando Martinez, VEENA ROPEWALK ROPE MAKER pm1 Elmo Cuello, RN RN jb4 Andrew Morales Brian, RN RN bp
--- NOTE | 2018-08-13 07:27 | EDPHYS ---
Physician Documentation [facility] Name: Bridget Haas Age: 33 yrs Sex: Female : 1985 Arrival Date: 08/13/2018 Time: 05:12 Bed 13 Private MD: Sebastián Carter E ED Physician Bao Kuo HPI: 08/13 06:14 This 33 yrs old Female presents to ER via Ambulatory with complaints of Flu pm1 Symptoms. 06:14 The patient or guardian reports cough, flu symptoms. Onset: The symptoms/episode pm1 began/occurred 3 day(s) ago. Severity of symptoms: in the emergency department the symptoms are unchanged. Modifying factors: The symptoms are alleviated by OTC cold preparation, the symptoms are aggravated by nothing. Associated signs and symptoms: Pertinent positives: diarrhea, fever, sore throat, vomiting, Pertinent negatives: chest pain, shortness of breath. The patient has not recently seen a physician. Sick contact with sore throat last week and prescribed antibiotics by PCP. SUPERVISOR SHOP: 05:21 LMP 07/18/2018 jb4 Historical: - Allergies: 05:21 PENICILLINS; jb4 - Home Meds: 05:21 None [Active]; jb4 - PMHx: 05:21 ADD/ADHD; Anxiety; Depression; headaches/migraines; Kidney stones; jb4 - PSHx: 05:21 Tonsillectomy; D \T\ C; Cholecystectomy; jb4 - Immunization history:: Adult Immunizations up to date, Flu vaccine is not up to date. - Social history:: Smoking status: Patient uses tobacco products, smokes one pack cigarettes per day. Patient/guardian denies using alcohol. - Ebola Screening: : No symptoms or risks identified at this time. ROS: 06:14 Eyes: Negative for injury, pain, redness, and discharge. pm1 06:14 Neck: Negative for injury, pain, and swelling, Cardiovascular: Negative for chest pain, palpitations, and edema. 06:14 Abdomen/GI: Negative for abdominal pain, nausea, vomiting, diarrhea, and constipation, Back: Negative for injury and pain, MS/Extremity: Negative for injury and deformity, Skin: Negative for injury, rash, and discoloration, Neuro: Negative for headache, weakness, numbness, tingling, and seizure. 06:14 Constitutional: Positive for body aches, fever, Negative for poor PO intake. 06:14 ENT: Positive for sore throat, Negative for drainage from ear(s), ear pain, sinus congestion, sinus pain, difficulty swallowing, difficulty handling secretions, hoarseness. 06:14 Respiratory: Positive for cough, Negative for shortness of breath, sputum production, wheezing. Exam: 06:14 Constitutional: This is a well developed, well nourished patient who is awake, alert, pm1 and in no acute distress. Head/Face: Normocephalic, atraumatic. Eyes: Pupils equal round and reactive to light, extra-ocular motions intact. Lids and lashes normal. Conjunctiva and sclera are non-icteric and not injected. Cornea within normal limits. Periorbital areas with no swelling, redness, or edema. 06:14 Neck: Trachea midline, no thyromegaly or masses palpated, and no cervical lymphadenopathy. Supple, full range of motion without nuchal rigidity, or vertebral point tenderness. No Meningismus. Chest/axilla: Normal chest wall appearance and motion. Nontender with no deformity. No lesions are appreciated. Cardiovascular: Regular rate and rhythm with a normal S1 and S2. No gallops, murmurs, or rubs. Normal PMI, no JVD. No pulse deficits. Respiratory: Lungs have equal breath sounds bilaterally, clear to auscultation and percussion. No rales, rhonchi or wheezes noted. No increased work of breathing, no retractions or nasal flaring. Abdomen/GI: Soft, non-tender, with normal bowel sounds. No distension or tympany. No guarding or rebound. No evidence of tenderness throughout. Back: No spinal tenderness. No costovertebral tenderness. Full range of motion. Skin: Warm, dry with normal turgor. Normal color with no rashes, no lesions, and no evidence of cellulitis. MS/ Extremity: Pulses equal, no cyanosis. Neurovascular intact. Full, normal range of motion. 06:14 ENT: External ear(s): are unremarkable, Ear canal(s): are normal, TM's: are normal, Nose: is normal, Mouth: is normal, Posterior pharynx: is normal, airway is patent, no erythema, no exudate, no peritonsilar mass, no pooling of secretions, no swelling. 06:14 Neuro: Orientation: is normal, Motor: is normal, moves all fours, Gait: is steady, at a normal pace, without difficulty. Vital Signs: 05:21 BP 109 / 78; Pulse 120; Resp 16; Temp 98.6(O); Pulse Ox 97% on R/A; Weight 63.5 kg (R); jb4 Height 5 ft. 2 in. (157.48 cm) (R); Pain 8/10; 06:30 BP 103 / 75; Pulse 105; Resp 16; Pulse Ox 96% on R/A; jb4 07:42 BP 99 / 74; Pulse 111; Resp 16; Pulse Ox 97% ; bp 05:21 Body Mass Index 25.61 (63.50 kg, 157.48 cm) jb4 MDM: 06:04 Patient medically screened. pm1 06:16 Data reviewed: vital signs. pm1 06:27 Data interpreted: Pulse oximetry: on room air is 97 %. Interpretation: normal. pm1 07:26 Counseling: I had a detailed discussion with the patient and/or guardian regarding: the pm1 historical points, exam findings, and any diagnostic results supporting the discharge/admit diagnosis, lab results, the need for outpatient follow up, to return to the emergency department if symptoms worsen or persist or if there are any questions or concerns that arise at home. 07:26 ED course: Patient reports less than 48 hours of onset of symptoms, will prescribe pm1 tamiflu. 08/13 05:24 Order name: Flu; Complete Time: 06:26 tw4 08/13 06:12 Order name: Strep; Complete Time: 07:26 pm1 08/13 07:17 Order name: Throat Culture EDMS Administered Medications: No medications were administered Disposition: 08/13/18 07:26 Discharged to Home. Impression: Influenza due to identified novel influenza A virus. - Condition is Stable. - Discharge Instructions: Influenza, Adult. - Prescriptions for Tamiflu 75 mg Oral Capsule - take 1 tablet by ORAL route every 12 hours for 5 days; 10 tablet. - Work release form, Medication Reconciliation Form, Thank You Letter, Antibiotic Education form. - Follow up: Emergency Department; When: As needed; Reason: Worsening of condition. Follow up: Private Physician; When: 2 - 3 days; Reason: Recheck today's complaints, Continuance of care, Re-evaluation by your physician. - Problem is new. - Symptoms have improved. Addendum: 08/16/2018 07:06 Co-signature as Attending Physician, Bao Kuo MD I agree with the assessment and t w4 plan of care. Signatures: Dispatcher [employer] EDMS Armando Martinez, SACK SORTER SACK SORTER pm1 Elmo Cuello, RN RN jb4 Luigi Portillo RN RN bp Bao Kuo MD MD tw4 Corrections: (The following items were deleted from the chart) 08/13 07:43 07:26 08/13/2018 07:26 Discharged to Home. Impression: Influenza due to identified bp novel influenza A virus. Condition is Stable. Discharge Instructions: Influenza, Adult. Prescriptions for Tamiflu 75 mg Oral Capsule - take 1 tablet by ORAL route every 12 hours for 5 days; 10 tablet. and Forms are Work release form, Medication Reconciliation Form, Thank You Letter, Antibiotic Education, Prescription Opioid Use. Follow up: Emergency Department; When: As needed; Reason: Worsening of condition. Follow up: Private Physician; When: 2 - 3 days; Reason: Recheck today's complaints, Continuance of care, Re-evaluation by your physician. Problem is new. Symptoms have improved. pm1
[2018-08-13 07:51] VITALS: TEMP 98.6
[2018-08-13 07:53] VITALS: BP 99/74; O2SAT 97
== END 2018-08-13 07:43 | disposition home or self-care (01) ==
LOC: ER 05:12
DX: J10.1 Influenza due to other identified influenza virus with other respiratory manifestations (principal); F17.210 Nicotine dependence, cigarettes, uncomplicated; Z88.0 Allergy status to penicillin
CPT/HCPCS: 87070; 87081; 87804; 99283